=== PATIENT | female | born 1945 | race Caucasian/White ===

== ENCOUNTER 2017-12-13 17:29 | Emergency (ER) | payer MEDICARE, SELFPAY ==
[2017-12-13 17:30] VITALS: BP 117/83; PULSE 52; RESP 18; TEMP 36.4; O2SAT 94; BMI 34.7
--- NOTE | 2017-12-13 17:44 | RAD_ITS ---
STUDY: X-RAY - RIGHT WRIST REASON FOR EXAM: Female, 72 years old. Pain after fall. TECHNIQUE: 3 view(s) of the wrist were obtained. COMPARISON: None. FINDINGS: Normal visualized distal radius and ulna. Normal radiocarpal articulation. Normal distal radioulnar articulation. Normal carpal bones. Normal carpal articulations. Normal carpometacarpal articulation of the thumb. Normal second through fifth carpometacarpal articulations. Normal visualized metacarpal bones. The soft tissue structures are unremarkable. RAD/Wrist min 3 Views IMPRESSION: Normal x-ray examination of the wrist. Electronically Signed: Papo Hunter DO at 18:22 EST Tel [phone], Service support ,
--- NOTE | 2017-12-13 17:47 | ED.DCSUM_ITS ---
- ER Visit Summary Date of Service: 12/13/17 Chief Complaint: Mechanical fall History of Present Illness: The patient is a 72 F is otherwise healthy presents after mechanical fall. Patient was walking up to carpeted stairs. She states the toe of her left slipper got stuck and she fell forward. She landed catching herself with an outstretched right wrist. She turned her left ankle underneath her. She also hit her upper lip against the carpet. She did not lose consciousness. She denies headache, blurry vision, neck pain, or weakness. 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 Because of this, she presented to the emergency department. She takes no anticoagulants. Her last tetanus was 3 years ago. Physical Examination: Vital signs reviewed General: Well-nourished, well-developed Head: Normocephalic, superficial abrasion above left lip. No malocclusion. Midface stable. No hemotympanum or nasal septal hematoma. Eyes: Pupils equal and reactive, extraocular muscles intact Neck, supple, no lymphadenopathy Heart: Regular rate and rhythm Respiratory: No distress, clear bilaterally Abdomen: Soft, nontender, nondistended, no peritoneal signs Back: Nontender Extremities: Edema and swelling of right wrist. Some pain with motion. Normal pulses. Neurovascular intact. Superficial abrasion of left knee. Flexion extension preserved. Mild tenderness over left lateral malleolus. Skin: Normal color no rash Neuro: Alert and oriented, no focal or lateralizing deficits Test Results: [] Emergency Department Course and Treatment: The patient had a mechanical fall. She has a GCS of 15. She is on no anticoagulants. She has no significant head trauma. I do not feel head CT is necessary. I did obtain x-rays of her wrist and ankle. There is no evidence of acute fracture. The patient declined analgesics. She will be placed in a wrist splint for comfort. She is counseled on concerning symptoms and reasons to return. The patient will be discharged home. Treatment Plan: [] Disposition: Discharge Impression:. Right wrist sprain status post fall 2. Left ankle sprain This note was generated with [employer] dictation software. It may contain incorrect words, spelling, and punctuation that were not noted in review of the chart prior to signing ED Disposition - Plan for ED Patient: Disposition: Home or Assisted Living Chief Complaint: Fall Instructions: ED Sprain Wrist Referrals: Steffen Malloy Chi, MD [Primary Care Provider] -
--- NOTE | 2017-12-13 17:50 | RAD_ITS ---
STUDY: X-RAY - LEFT ANKLE REASON FOR EXAM: Female, 72 years old. Pain after fall. TECHNIQUE: 3 view(s) of the ankle. COMPARISON: None. FINDINGS: Normal visualized distal tibia and fibula. Normal medial and lateral malleoli. Normal tibiotalar articulation and ankle mortise. Normal visualized talus and calcaneus. The visualized subtalar, talonavicular, calcaneocuboid and tarsal articulations are normal. There is mild medial soft tissue swelling. RAD/Ankle min 3 Views IMPRESSION: Minimal soft tissue swelling without fracture or dislocation. Electronically Signed: Papo Hunter DO at 18:21 EST Tel [phone], Service support ,
[2017-12-13 18:42] VITALS: BP 120/80; PULSE 60; RESP 14; O2SAT 99
== END 2017-12-13 18:43 | disposition home or self-care (01) ==
LOC: ED 17:53
PROVIDERS: Emergency Provider Emergency Medicine; Family Provider Family Medicine Geriatric Medicine; PCP Family Medicine Geriatric Medicine
DX: S63.501A Unspecified sprain of right wrist, initial encounter (principal); S93.402A Sprain of unspecified ligament of left ankle, initial encounter; S00.81XA Abrasion of other part of head, initial encounter; S80.212A Abrasion, left knee, initial encounter; R40.2410 Glasgow coma scale score 13-15, unspecified time; W10.9XXA Fall (on) (from) unspecified stairs and steps, initial encounter; Y93.01 Activity, walking, marching and hiking; Y92.9 Unspecified place or not applicable
CPT/HCPCS: 73110; 73610; 99284

== ENCOUNTER → 2018-08-06 15:51 | Outpatient (CLI) | payer MEDICARE, SELFPAY ==
--- NOTE | 2018-08-06 15:55 | RAD_ITS ---
STUDY: X-RAY CHEST REASON FOR EXAM: Female, 73 years old. Chest cold x2 weeks TECHNIQUE: PA and lateral views of the chest. COMPARISON: Prior study of December 14, 2015 FINDINGS: The lungs are clear and expanded. There is no demonstrated pleural abnormality. There is mild cardiac enlargement. Normal mediastinum and rey. Normal visualized pulmonary arteries. There are calcified plaques of the thoracic aorta. There is demineralization of the osseous structures. Normal visualized ribs, clavicles, and shoulders. There is no demonstrated abnormality of the visualized soft tissue structures of the upper abdomen. RAD/Chest PA and Lateral IMPRESSION: Mild cardiomegaly. Calcified plaques of the thoracic aorta. Generalized osteopenia. No acute cardiopulmonary disease process is seen. Electronically Signed: Gorge Lane MD at 23:01 EDT , Service support ,
== END ==
PROVIDERS: Family Provider Family Medicine Geriatric Medicine; PCP Family Medicine Geriatric Medicine; Referring Provider Family Medicine Geriatric Medicine; Visit Provider Family Medicine Geriatric Medicine
DX: R68.83 Chills (without fever) (principal)
CPT/HCPCS: 71046; 87633

== ENCOUNTER → 2018-08-20 15:11 | Outpatient (CLI) | payer MEDICARE, SELFPAY ==
[2018-08-20 16:14] LABS: Absolute Lymphocyte Count 2.17 X10^3/ul (0.83-4.51); Absolute Neutrophil Count 9.3 X10^3/uL (2.0-7.7); Basophil# 0.04 X10^3/uL; Basophil% 0.3 % (0-1); Eosinophils% 0.8 % (0-5); Hematocrit 45.3 % (37-47); Hemoglobin 15.6 g/dl (12.0-15.0); Lymphocyte # 2.17 X10^3/ul (4.0); Lymphocyte % 17.4 % (19-41); Mean Corp Hgb Conc 34.4 g/gl (32-36); Mean Corpuscular Hgb 32.4 pg (27.0-32.0); Mean Corpuscular Volume 94.2 fL (81-99); Mean Platelet Vol. 11.1 fl (6.2-12.0); Monocyte# 0.88 X10^3/uL; Neutrophil # 9.25 X10^3/uL (2.7-7.7); Neutrophil % 74.1 % (47-70); Platelet Count 240 K/mm3 (150-450); RBC Distribution Width CV 15.4 % (11.6-14.6); RBC Distribution Width SD 52.2 fl (35.1-43.9); Red Blood Count 4.81 M/mm3 (4.2-5.4); White Blood Count 12.5 K/mm3 (4.4-11.0)
[2018-08-20 16:20] LABS: POSITIVE COUNT NO; POSITIVE DIFFERENTIAL NO; POSITIVE MORPHOLOGY NO
[2018-08-20 16:40] LABS: Vitamin D,25 Hydroxy 23.6 ng/mL (29.95-100.01)
[2018-08-20 16:57] LABS: ALB/GLOB Ratio 0.8 RATIO (0.9-2.4); AST(SGOT) 14 U/L (15-37); Alanine Aminotransfer ALT/SGPT 32 U/L (13-56); Albumin, Serum 3.3 g/dL (3.2-5.0); Alkaline Phosphatase 79 U/L (45-117); Anion Gap 8 (5-15); BUN 22 mg/dL (7-18); BUN/Creat Ratio 28.1 RATIO (10-20); Calcium,Total 9.5 mg/dL (8.5-10.1); Chloride 98 mmol/L (98-107); Cholesterol 201 mg/dL (200); Creatinine, Serum 0.78 mg/dL (0.55-1.02); EST Glomerular Filtration Rate 77 mL/min (>60); Est Glom Filt Rate - Afr Amer 93 mL/min (>60); Globulin 3.9 g/dL (2.2-4.2); Glucose 107 mg/dL (74-106); High Density Lipoprotein 57 mg/dL; Potassium 4.5 mmol/L (3.5-5.1); Protein, Total 7.2 g/dL (6.4-8.2); Sodium Level 138 mmol/L (136-145); Thyroid Stim Hormone (TSH) 1.89 uIU/mL (0.358-3.74); Triglycerides 92 mg/dL; Very Low Density Lipoprotein 18 mg/dL (5-40)
[2018-08-22 10:27] LABS: Hep C Antibodies <0.1 s/co ratio (0.0-0.9)
== END ==
PROVIDERS: Family Provider Family Medicine Geriatric Medicine; PCP Family Medicine Geriatric Medicine; Visit Provider Family Medicine Geriatric Medicine
DX: E55.9 Vitamin D deficiency, unspecified (principal); E78.49 Other hyperlipidemia; I10 Essential (primary) hypertension; Z13.89 Encounter for screening for other disorder
CPT/HCPCS: 80053; 80061; 82306; 84443; 85025; 86803

== ENCOUNTER 2018-11-11 21:43 | Inpatient (IN) | payer MEDICARE, SELFPAY ==
[2018-11-11 21:45] VITALS: BP 140/76; PULSE 83; RESP 13; TEMP 37.2; O2SAT 97; BMI 37.9
[2018-11-11 21:49] VITALS: BP 140/76; PULSE 96; RESP 15; O2SAT 95
--- NOTE | 2018-11-11 22:00 | EKG12_ITS ---
Test Reason : CP Blood Pressure : / mmHG Vent. Rate : 083 BPM Atrial Rate : 083 BPM P-R Int : 226 ms QRS Dur : 110 ms QT Int : 408 ms P-R-T Axes : 056 036 059 degrees QTc Int : 479 ms Sinus rhythm with marked sinus arrhythmia with 1st degree A-V block with Premature atrial complexes Incomplete right bundle branch block Cannot rule out Anterior infarct , age undetermined Abnormal ECG Confirmed by GERALD JESUS, SENAIT ([id number]), production editor LETTY RIOJAS ([id number]) on 11/14/2018 3:27:38 PM Referred By: No Mancini Confirmed By:SENAIT DUARTE MD
--- NOTE | 2018-11-11 22:08 | RAD_ITS ---
STUDY: X-RAY CHEST REASON FOR EXAM: Female, 73 years old. Chest pain. TECHNIQUE: Single frontal view of the chest. COMPARISON: August 06, 2018 FINDINGS: There is no new focal consolidation. There are stable prominent interstitial markings. There is stable mild cardiomegaly. Normal mediastinum and rey. Normal visualized pulmonary arteries. There is atherosclerotic calcification of the aortic arch. Normal visualized thoracic spine. Normal visualized ribs, clavicles, and shoulders. There is no demonstrated abnormality of the visualized soft tissue structures of the upper abdomen. RAD/Chest 1 View (Portable) IMPRESSION: Stable examination demonstrating mild cardiomegaly. Electronically Signed: Corie Huizar MD at 22:20 EST Tel , Service support ,
[2018-11-11 22:16] VITALS: O2SAT 93
[2018-11-11] MEDS: Aspirin 81 MG TAB.CHEW 324 MG PO (22:17)
[2018-11-11 22:41] LABS: Absolute Lymphocyte Count 1.41 X10^3/ul (0.83-4.51); Absolute Neutrophil Count 12.9 X10^3/uL (2.0-7.7); Basophil# 0.02 X10^3/uL; Basophil% 0.1 % (0-1); Eosinophil# 0.01 X10^3/uL; Eosinophils% 0.1 % (0-5); Hematocrit 44.9 % (37-47); Lymphocyte # 1.41 X10^3/ul (4.0); Lymphocyte % 9.3 % (19-41); Mean Corp Hgb Conc 33.4 g/gl (32-36); Mean Corpuscular Hgb 31.8 pg (27.0-32.0); Mean Corpuscular Volume 95.3 fL (81-99); Mean Platelet Vol. 11.6 fl (6.2-12.0); Monocyte% 4.6 % (0-10); Neutrophil % 85.5 % (47-70); Platelet Count 252 K/mm3 (150-450); RBC Distribution Width CV 15.1 % (11.6-14.6); RBC Distribution Width SD 52.9 fl (35.1-43.9); Red Blood Count 4.71 M/mm3 (4.2-5.4); White Blood Count 15.1 K/mm3 (4.4-11.0)
[2018-11-11 22:44] LABS: POSITIVE COUNT NO; POSITIVE DIFFERENTIAL NO; POSITIVE MORPHOLOGY NO
--- NOTE | 2018-11-11 22:54 | ED.DCSUM_ITS ---
- ER Visit Summary Date of Service: 11/11/18 Chief Complaint: Chest pain History of Present Illness: The patient is a 73 F presenting with chest pain. She states that this started earlier today. She complains of midsternal chest pain which radiates to her throat. It is worsened with exertion. Also comp lains of associated shortness of breath, nausea, diaphoresis. She states it is 5 out of 10. She denies PE/DVT risk factors. She has a history of GERD, hypertension, hypercholesterolemia. She is a smoker. Physical Examination: Vitals are stable. Patient is afebrile. Alert no acute distress. HEENT exam is unremarkable. Neck is supple. Lungs are clear and equal bilaterally. Heart is regular rate and rhythm. Abdomen is soft nontender nondistended. No guarding or rebound Extremities are unremarkable. Skin is warm and dry. No focal neurologic deficit. Remainder of exam is unremarkable. Emergency Department Course and Treatment: Patient was given aspirin on arrival. EKG is sinus rate of 83 with no acute ischemic changes. Chest x-ray shows mild cardiomegaly. CBC shows white count of 15.1. Chemistries show sodium 134, potassium 3.4, glucose 176, BUN 22. Troponin is 1.12. She is given morphine, Zofran. She is chest pain-free on reevaluation. Discussed with the hospitalist for admission. Discussed with Dr. Carlson. He recommends Brilinta, Lovenox, n.p.o. Disposition: Admission Impression: NSTEMI This note was generated with [employer] dictation software. It may contain incorrect words, spelling, and punctuation that were not noted in review of the chart prior to signing ED Disposition - Plan for ED Patient: Chief Complaint: Chest Pain
[2018-11-11 23:06] LABS: Anion Gap 10 (5-15); BUN 22 mg/dL (7-18); BUN/Creat Ratio 27.1 RATIO (10-20); Calcium,Total 9.8 mg/dL (8.5-10.1); Chloride 96 mmol/L (98-107); Creatinine, Serum 0.81 mg/dL (0.55-1.02); EST Glomerular Filtration Rate 74 mL/min (>60); Est Glom Filt Rate - Afr Amer 89 mL/min (>60); Estimated Creatinine Clearance 49.65 ml/min; Glucose 176 mg/dL (74-106); Potassium 3.4 mmol/L (3.5-5.1); Sodium Level 134 mmol/L (136-145)
--- NOTE | 2018-11-11 23:20 | ED.RN ---
dr winston notified of trop results
[2018-11-11] MEDS: Ondansetron 4 MG/2 ML Vial IV (23:23)
[2018-11-11] MEDS: Morphine 4 MG/ML Syringe IV (23:23)
--- NOTE | 2018-11-11 23:32 | PCM.HP.STD ---
Problem List (1) NSTEMI (non-ST elevated myocardial infarction) Status: Acute (2) Hypertension Status: Chronic Qualifiers: Hypertension type: essential hypertension Qualified Code(s): I10 - Essential (primary) hypertension (3) Hyperlipidemia Status: Acute Qualifiers: Hyperlipidemia type: unspecified Qualified Code(s): E78.5 - Hyperlipidemia, unspecified (4) Vitamin D deficiency Status: Chronic History of Present Illness Date of Admission: 11/11/18 Chief Complaint: Chest discomfort- 1 day The patient is a 73 year old F with past medical history of hypertension, hyperlipidemia, nicotine dependence, who comes in with 1 day history of chest discomfort. Patient woke up in the morning with what she describes as heartburns, that would not go away. She states she gets frequent heartburns, and typically did go away after couple of hours. This persisted throughout the whole day. Her son-in-law came to visit and insisted on she coming to the emergency department. She denied any dizziness or palpitations or shortness of breath or worsening leg swelling or PND or orthopnea. Vitals in the ED show temperature 98.9 F, heart rate 83, blood pressure 140/76, respiratory 13, SPO2 97% on room air. Admitting blood work showed RBC count of 15.1, hemoglobin 15.2, platelet count 252, sodium 134 potassium 3.4 chloride 96, bicarbonate 28, BUN 22, creatinine 0.81. Troponins were 1.120. EKG showed normal sinus rhythm, incomplete left bundle branch block, T wave inversion in V2 and V3. Admitting chest x-ray showed mild cardiomegaly. Past Medical History Past Medical History (Chronic Problems): Chronic Problems Hypertension (Chronic) Vitamin D deficiency (Chronic) Allergies No Known Allergies Allergy (Verified 11/11/18 21:49) Home Medications: Ambulatory Orders Medication Instructions Recorded Atenolol/Chlorthalidone 1 each PO DAILY 12/14/15 [Atenolol-Chlorthalidone 50-25] Budesonide/Formoterol 160/4.5 2 puff INHALATION QHS 12/14/15 [Symbicort 160/4.5 Mcg Inhaler (SP)] Ergocalciferol [Vitamin D] 50,000 unit PO QMONTH 12/14/15 Pravastatin [Pravachol] 40 mg PO QHS 12/14/15 Tiotropium [place] [Spiriva 18 MCG] 1 puff INHALATION DAILY 12/14/15 Losartan Potassium 100 mg PO DAILY 12/13/17 Surgical History: appendectomy, hysterectomy Psychiatric History: No pertinent psych hx NIGHT AUDITOR 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 Denies: Claudication, Light Headedness, Orthopnea, Palpitations, Paroxysmal Noc. Dyspnea Respiratory: Denies: Cough, Hemoptysis, Pleuritic Pain, Shortness of breath at rest, Shortness of breath upon exertion, Sputum production Gastrointestinal: Denies: Abdominal Pain, Nausea, Vomiting Genitourinary: Denies: Dysuria Musculoskeletal: Denies: Joint Pain, Joint Tenderness Skin: Denies: Rash, Wounds Neurological: Denies: Numbness, Tingling, Focal weakness Psychiatric: Denies: Anxiety, Depression, Homicidal Ideations, Suicidal Ideations Hematologic/ Lymphatic: Denies: Easy Bruising, Easy Bleeding VTE Information - Inpt Only VTE Present on Admission: No VTE Pharm Prophylaxis ordered?: Yes Patient Problems: Active and Suspected Problems NSTEMI (non-ST elevated myocardial infarction) (Acute) Hyperlipidemia (Acute) - Physical Exam General: Alert, Oriented x3, Cooperative, No apparent distress, - - on 2L oxygen, comfortable, able to complete sentences, obese HEENT: Atraumatic, PERRLA, EOMI, Normocephalic Oral: Moist Mucosa Neck: Supple, No JVD, Negative Carotid Bruits Lungs: Clear to auscultation, Normal air movement Cardiovascular: Regular rate, Regular Rhythm, Normal S1, Normal S2, No murmurs Abdomen: Bowel Sounds Present, Soft, Non Tender, Non-Distended, No Hepato-splenomegaly Extremities: Edema - Bipedal +2 Skin: No rashes, No breakdown Musculoskeletal: No Tenderness to Palpation of Joints or Extremities Lymphatic: No Cervical, Supraclavicular, or Inguinal Adenopathy Neurological: Cranial nerves II-XII grossly intact, Neuro grossly intact Psych/Mental Status: Normal Affect, Appropriate Vital Signs Temp Pulse Resp BP Pulse Ox 98.9 F 96 15 140/76 H 93 11/11/18 21:45 11/11/18 21:49 11/11/18 21:49 11/11/18 21:49 11/11/18 22:16 Oxygen Delivery Method Room Air Weight: 94 kg Body Mass Index (BMI) 37.9 Laboratory Tests Past 24 Hrs 11/11/18 11/11/18 21:50 21:50 WBC 15.1 H RBC 4.71 Hgb 15.0 Hct 44.9 MCV 95.3 MCH 31.8 MCHC 33.4 RDW 15.1 H RDW Differential 52.9 H Plt Count 252 MPV 11.6 Immature Gran % (Auto) 0.400 Neut % (Auto) 85.5 H Lymph % (Auto) 9.3 L [place] % (Auto) 4.6 Eos % (Auto) 0.1 Baso % (Auto) 0.1 Absolute Neuts (auto) 12.9 H Absolute Lymphs (auto) 1.41 Total Counted Not Reportable Sodium 134 L Potassium 3.4 L Chloride 96 L Carbon Dioxide 28.0 Anion Gap 10 BUN 22 H Creatinine 0.81 Estim Creat Clear Calc 49.65 Est GFR (MDRD) Af Amer 89 Est GFR (MDRD) Non-Af 74 BUN/Creatinine Ratio 27.1 H Glucose 176 H Calcium 9.8 Troponin I 1.120 H* Assessment/Plan All Active Problems NSTEMI (non-ST elevated myocardial infarction) (Acute) Hyperlipidemia (Acute) 73 year old F with past medical history of hypertension, hyperlipidemia, nicotine dependence, who comes in with 1 day history of chest discomfort. Patient woke up in the morning with what she describes as heartburns, that would not go away. 1. Acute NSTEMI, CAREN score 4, in a patient with multiple risk factors, admitting troponin was 1.120, EKG showed no acute ST-T changes Plan: Admit to PCU, monitor on telemetry, cardiology consult, given Lovenox x1, Brilinta 180 mg p.o. x1, in the ED, continue with Brilinta 80 mg p.o. twice daily, metoprolol 25 mg p.o. twice daily, keep n.p.o. for cardiac cath in a.m. per cardiology, 2D echo 2. Hypokalemia, secondary to chlorthalidone use, replaced, recheck in a.m. 3. Leukocytosis, likely reactive, no signs of infection, recheck in a.m. 4. Acute hypoxic respiratory failure, likely secondary to atelectasis, on 2 L oxygen, will check BNpep, encourage use of incentive spirometer, wean off oxygen 5. Hypertension, on atenolol/chlorthalidone, losartan, Will hold atenolol/chlorthalidone because she was started on metoprolol Continue to monitor vitals closely 6. Hyperlipidemia, on pravastatin 7. Nicotine dependence, will put on nicotine patch and gum 8. COPD, not on oxygen, on Advair, will put on prn breathing treatments 9. DVT PPx- Received Therapeutic Lovenox in ED Code Visit Inpatient E&M: 70011 Init Hosp L2
[2018-11-11 23:48] VITALS: BP 101/73; PULSE 76; RESP 17; O2SAT 96
[2018-11-11] MEDS: Enoxaparin 100 MG/ML Syringe 90 MG SC (23:50)
[2018-11-11] MEDS: TICAGRELOR 90 MG TABLET 180 MG PO (23:50)
[2018-11-12] VITALS (30 sets, daily range): BP systolic 96–159; BP diastolic 45–95; PULSE 53–83; RESP 16–27; TEMP 36.7–37; O2SAT 92–100; BMI 36.6; BMI 36.3
--- NOTE | 2018-11-12 00:28 | ECHOCS_ITS ---
Reason For Study: CP Procedure This was a 2D Doppler, Color Flow transthoracic echocardiogram. The study was technically difficult. Contrast injection was performed. Exam performed portable in ICU/CCU. Left Ventricle Normal LV size. Left ventricular systolic function is normal. The estimated ejection fraction is 65 %. No regional wall motion abnormalities noted. Right Ventricle Normal RV size. Normal systolic function. Atria Normal left atrium. Normal right atrium. No doppler evidence for ASD. Mitral Valve There is no mitral annular calcification. Normal mitral valve. Trivial mitral valve insufficiency. Tricuspid Valve Normal tricuspid valve. Trivial tricuspid valve insufficiency. Unable to estimate RV systolic pressure/pulmonary artery pressure due to technically difficult study. Aortic Valve The aortic valve is not well visualized. Trivial aortic valve insufficiency. Pulmonic Valve The pulmonic valve is not well visualized. 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 Pericardium/Pleural Small pericardial effusion. There are no echocardiographic indications of cardiac tamponade. Medication Diluted definity 5ml given slow IV push to enhance endocardial definition. MMode/2D Measurements & Calculations LVIDd: 4.9 cm IVSd: 1.4 cm Ao root diam: 3.8 cm LVIDs: 3.3 cm LVPWd: 1.2 cm ACS: 1.9 cm FS: 31.3 % Time Measurements MV dec time: 0.19 sec Doppler Measurements & Calculations MV E max cristiano: 99.9 cm/sec MV V2 max: 122.3 cm/sec MV P1/2t max cristiano: 121.3 cm/sec MV A max cristiano: 62.3 cm/sec MV max P.0 mmHg MV P1/2t: 110.7 msec MV E/A: 1.6 MV V2 mean: 51.5 cm/sec MV dec slope: 321.0 cm/sec2 MV mean P.4 mmHg MVA(P1/2t): 2.0 cm2 MV V2 VTI: 48.6 cm Ao V2 max: 145.0 cm/sec AI max cristiano: 370.1 cm/sec LV V1 max: 108.6 cm/sec Ao max P.5 mmHg AI max P.8 mmHg LV V1 max P.8 mmHg AI dec slope: 119.8 cm/sec2 AI P1/2t: 904.9 msec PA V2 max: 103.9 cm/sec Interpretation Summary The study was technically difficult. Contrast injection was performed. Left ventricular systolic function is normal. The estimated ejection fraction is 65 %. Trivial mitral valve insufficiency. Trivial tricuspid valve insufficiency. Trivial aortic valve insufficiency. 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 Small pericardial effusion. There are no echocardiographic indications of cardiac tamponade. Unable to estimate RV systolic pressure/pulmonary artery pressure due to technically difficult study. Transmitral diastolic flow velocities suggest diastolic dysfunction (pseudonormal pattern). Ordering Physician: No Mancini Referring Physician: No Mancini Performed By: Geovani Guaman RCS
--- NOTE | 2018-11-12 00:28 | EKG12_ITS ---
Test Reason : DOCTORS ORDER Blood Pressure : / mmHG Vent. Rate : 059 BPM Atrial Rate : 059 BPM P-R Int : 196 ms QRS Dur : 108 ms QT Int : 472 ms P-R-T Axes : 065 035 087 degrees QTc Int : 467 ms Sinus bradycardia with Premature atrial complexes with Aberrant conduction Nonspecific ST and T wave abnormality Abnormal ECG When compared with ECG of 12-NOV-2018 00:46, MANUAL COMPARISON REQUIRED, DATA IS UNCONFIRMED Confirmed by GERALD JESUS, SENAIT ([id number]), offline editor LETTY RIOJAS ([id number]) on 11/18/2018 9:05:20 AM Referred By: No Mancini Confirmed By:SENAIT DUARTE MD
--- NOTE | 2018-11-12 01:36 | NURSING ---
Pt unsure of when pneumonia vaccine was given. Guessed it was about 3 years ago.
[2018-11-12 04:14] LABS: Absolute Lymphocyte Count 1.96 X10^3/ul (0.83-4.51); Absolute Neutrophil Count 8.6 X10^3/uL (2.0-7.7); Basophil# 0.01 X10^3/uL; Basophil% 0.1 % (0-1); Eosinophil# 0.01 X10^3/uL; Eosinophils% 0.1 % (0-5); Hematocrit 41.9 % (37-47); Hemoglobin 14.2 g/dl (12.0-15.0); Lymphocyte # 1.96 X10^3/ul (4.0); Lymphocyte % 16.6 % (19-41); Mean Corp Hgb Conc 33.9 g/gl (32-36); Mean Corpuscular Hgb 32.3 pg (27.0-32.0); Mean Corpuscular Volume 95.2 fL (81-99); Mean Platelet Vol. 11.2 fl (6.2-12.0); Monocyte# 1.16 X10^3/uL; Monocyte% 9.8 % (0-10); Neutrophil # 8.64 X10^3/uL (2.7-7.7); Neutrophil % 73.1 % (47-70); Platelet Count 243 K/mm3 (150-450); RBC Distribution Width CV 15.4 % (11.6-14.6); RBC Distribution Width SD 52.6 fl (35.1-43.9); White Blood Count 11.8 K/mm3 (4.4-11.0)
[2018-11-12 04:15] LABS: International Normalized Ratio 1.1; Prothrombin Time (Protime)PT. 13.9 SECONDS (11.7-14.9)
[2018-11-12 04:16] LABS: Partial Thromboplast Time 36.5 Seconds (24.1-36.2)
[2018-11-12 04:19] LABS: POSITIVE COUNT NO; POSITIVE DIFFERENTIAL NO; POSITIVE MORPHOLOGY NO
[2018-11-12 04:48] LABS: Anion Gap 12 (5-15); BUN 24 mg/dL (7-18); BUN/Creat Ratio 29.1 RATIO (10-20); Calcium,Total 9.4 mg/dL (8.5-10.1); Chloride 95 mmol/L (98-107); Cholesterol 114 mg/dL (200); Creatinine, Serum 0.82 mg/dL (0.55-1.02); EST Glomerular Filtration Rate 72 mL/min (>60); Est Glom Filt Rate - Afr Amer 88 mL/min (>60); Estimated Creatinine Clearance 49.05 ml/min; Glucose 132 mg/dL (74-106); High Density Lipoprotein 44 mg/dL; Potassium 3.6 mmol/L (3.5-5.1); Sodium Level 137 mmol/L (136-145); Triglycerides 119 mg/dL; Very Low Density Lipoprotein 24 mg/dL (5-40)
[2018-11-12 05:10] LABS: BNP,B-Type NATRIURETIC PEPTIDE 406.8 pg/mL (0-100)
[2018-11-12] MEDS: 0.9% NaCl Peripheral Flush Adult/Peds IV ×3 (06:07→06:14)
[2018-11-12] MEDS: Furosemide 20 MG/2 ML VIAL IV (06:22)
--- NOTE | 2018-11-12 07:07 | EKG12_ITS ---
Test Reason : POST PCI Blood Pressure : / mmHG Vent. Rate : 073 BPM Atrial Rate : 073 BPM P-R Int : 242 ms QRS Dur : 110 ms QT Int : 458 ms P-R-T Axes : 060 024 072 degrees QTc Int : 504 ms Sinus rhythm with 1st degree A-V block Prolonged QT Abnormal ECG When compared with ECG of 12-NOV-2018 00:46, MANUAL COMPARISON REQUIRED, DATA IS UNCONFIRMED Confirmed by GERALD JESUS, SENAIT ([id number]), general expeditor LETTY RIOJAS ([id number]) on 11/14/2018 3:48:31 PM Referred By: No Mancini Confirmed By:SENAIT DUARTE MD
[2018-11-12] MEDS: Metoprolol Tartrate 25 MG Tablet PO (08:01)
[2018-11-12] MEDS: TICAGRELOR 90 MG TABLET PO ×2 (08:01→21:53)
[2018-11-12] MEDS: Aspirin E.C. 81 MG Tablet PO (08:01)
[2018-11-12] MEDS: Losartan Potassium 100 MG Tablet PO (08:01)
[2018-11-12] MEDS: Budesonide Respules 0.5 MG/2 ML AMPUL.NEB. INHALATION ×2 (08:06→18:42)
[2018-11-12] MEDS: Ipratropium/Albuterol Sulfate 3 ML AMPUL.NEB INHALATION ×3 (08:06→18:42)
--- NOTE | 2018-11-12 08:09 | PCM.CONS.C ---
Problem List (1) NSTEMI (non-ST elevated myocardial infarction) Status: Acute (2) Conduction disorder of the heart Status: Acute (3) Hyperlipidemia Status: Acute Qualifiers: Hyperlipidemia type: unspecified Qualified Code(s): E78.5 - Hyperlipidemia, unspecified (4) Hypertension Status: Chronic Qualifiers: Hypertension type: essential hypertension Qualified Code(s): I10 - Essential (primary) hypertension (5) COPD (chronic obstructive pulmonary disease) Status: Chronic Reason for Consult Date of Consultation: 11/12/18 History of Present Illness: The patient is a 73 year old white female with a past medical history of hyperlipidemia, hypertension, COPD, who presents for evaluation of symptoms and objective findings compatible with an acute non-ST segment elevation [place] as well as subsequent cardiac dysrhythmia findings compatible with underlying conduction system abnormality. The patient states that she has off and on heartburn . She states this radiates from her epigastric area up to her neck. It does not usually involve her jaw or upper extremities. She does feel chronically short of breath and dyspneic which she attributes to her COPD. She denies any associated nausea, emesis, or diaphoresis. She has had not had orthopnea or PND. She states she has waxing and waning lower extremity peripheral pitting edema. She has felt dizzy and lightheaded but there is been no near syncope or syncope. She had recurrent symptoms yesterday. She states they persisted all day. She subsequent he presented to the [facility] emergency department for further evaluation. They are on cardiac enzyme profile she was found to have an abnormally elevated troponin I level. Her ECG demonstrated sinus rhythm with what was reported as an incomplete right bundle branch block pattern. She was subsequently treated with a combination of aspirin and antiplatelet therapy as well as nitrates and beta-blockers. She was given a one-time dose of subcutaneous Lovenox. She was placed in the PCU for further evaluation and care. Since that time she has been resting comfortably. Her cardiac enzymes have been followed and her troponin I levels have decreased. Her ECG continues to demonstrate an underlying sinus rhythm with her incomplete right bundle branch block pattern. However on cardiac rhythm monitoring she has been shown to have evidence of what appears to be second-degree AV block Mobitz 1 as well as episodes of 2-1 AV block/high-grade AV block. [] Past Medical History Allergies/Adverse Reactions: Allergies No Known Allergies Allergy (Verified 11/11/18 21:49) Home Medications: Ambulatory Orders Medication Instructions Recorded Atenolol/Chlorthalidone 1 each PO DAILY 12/14/15 [Atenolol-Chlorthalidone 50-25] Budesonide/Formoterol 160/4.5 2 puff INHALATION QHS 12/14/15 [Symbicort 160/4.5 Mcg Inhaler (SP)] Ergocalciferol [Vitamin D] 50,000 unit PO QMONTH 12/14/15 Pravastatin [Pravachol] 40 mg PO QHS 12/14/15 Tiotropium [place] [Spiriva 18 MCG] 1 puff INHALATION DAILY 12/14/15 RX: Losartan Potassium 100 mg PO DAILY 12/13/17 Past Medical History (Chronic Problems): Chronic Problems Hypertension (Chronic) Vitamin D deficiency (Chronic) COPD (chronic obstructive pulmonary disease) (Chronic) Surgical History: appendectomy, hysterectomy Psychiatric History: No pertinent psych hx 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 Denies: Orthopnea, PND, Peripheral Edema, Palpitations, Lightheadedness, Near Syncope, Syncope Respiratory: Reports: Shortness of Breath. Denies: Cough, Sputum Production, Hemoptysis Gastrointestinal: Denies: Hematemesis, Hematochezia, Melena Genitourinary: Denies: Dysuria, Hematuria Skin: Denies: Rash Objective: Vital Signs Temp Pulse Resp BP Pulse Ox 98.5 F 82 16 114/60 92 11/12/18 08:00 11/12/18 08:01 11/12/18 08:00 11/12/18 08:00 11/12/18 08:00 Oxygen Flow Rate (L/min) 2 Oxygen Delivery Method Room Air Weight: 199 lb 15.348 oz Body Mass Index (BMI) 36.6 Intake and Output for Last 24 Hours 11/10/18 11/11/18 11/12/18 23:59 23:59 23:59 Intake Total 240 / 240 Balance 240 / 240 General: Awake, Alert, Oriented x 3, Cooperative, No Acute Distress, Obese HEENT: Atraumatic, Normocephalic, PERRL, EOMI, Sclera Non Icteric Oral: Moist Mucosa Neck: Supple, Good ROM, No JVD Lungs: Clear to auscultation Cardiovascular: Regular Rhythm, Normal S1, Normal S2 Vascular: No Carotid Bruits Abdomen: Bowel Sounds Present, Soft, Non Tender Extremities: Trace RLE Edema, Trace LLE Edema Neurological: No Focal Motor or Sensory Deficit Psych/Mental Status: Appropriate 11/11/18 21:50: WBC 15.1 H, RBC 4.71, Hgb 15.0, Hct 44.9, MCV 95.3, MCH 31.8, MCHC 33.4, RDW 15.1 H, RDW Differential 52.9 H, Plt Count 252, MPV 11.6, Immature Gran % (Auto) 0.400, Neut % (Auto) 85.5 H, Lymph % (Auto) 9.3 L, [place] % (Auto) 4.6, Eos % (Auto) 0.1, Baso % (Auto) 0.1, Absolute Neuts (auto) 12.9 H, Total Counted Not Reportable 11/11/18 21:50: Sodium 134 L, Potassium 3.4 L, Chloride 96 L, Carbon Dioxide 28.0, Anion Gap 10, BUN 22 H, Creatinine 0.81, Est GFR (MDRD) Af Amer 89, Est GFR (MDRD) Non-Af 74, BUN/Creatinine Ratio 27.1 H, Glucose 176 H, Calcium 9.8, Troponin I 1.120 H* 11/12/18 00:58: Troponin I 1.000 H* 11/12/18 03:40: Sodium 137, Potassium 3.6, Chloride 95 L, Carbon Dioxide 30.0, Anion Gap 12, BUN 24 H, Creatinine 0.82, Est GFR (MDRD) Af Amer 88, Est GFR (MDRD) Non-Af 72, BUN/Creatinine Ratio 29.1 H, Glucose 132 H, Calcium 9.4, Troponin I 0.777 H*, Triglycerides 119, Cholesterol 114, LDL Cholesterol 46, VLDL Cholesterol 24, HDL Cholesterol 44 11/12/18 03:40: WBC 11.8 H, RBC 4.40, Hgb 14.2, Hct 41.9, MCV 95.2, MCH 32.3 H, MCHC 33.9, RDW 15.4 H, RDW Differential 52.6 H, Plt Count 243, MPV 11.2, Immature Gran % (Auto) 0.300, Neut % (Auto) 73.1 H, Lymph % (Auto) 16.6 L, Cat[place] % (Auto) 9.8, Eos % (Auto) 0.1, Baso % (Auto) 0.1, Absolute Neuts (auto) 8.6 H, Total Counted Not Reportable 11/12/18 03:40: PT 13.9, INR 1.1, APTT 36.5 H 11/12/18 03:40: Sodium Cancelled, Potassium Cancelled, Chloride Cancelled, Carbon Dioxide Cancelled, Anion Gap Cancelled, BUN Cancelled, Creatinine Cancelled, Est GFR (MDRD) Af Amer Cancelled, Est GFR (MDRD) Non-Af Cancelled, BUN/Creatinine Ratio Cancelled, Glucose Cancelled, Calcium Cancelled 11/12/18 03:40: B-Natriuretic Peptide 406.8 H Rhythm: sinus rhythm EKG: as noted above CXR: preliminary evaluation: no acute cardiopulmonary disease appreciated; please see official report Assessment/Plan 1. NSTEMI The patient presents with signs and symptoms and objective findings compatible with a non-ST segment elevation IN. She is going to continue to be monitored. She will continue medical therapy. She will proceed with further evaluation with diagnostic cardiac catheterization. The cardiac catheterization procedure and risks were discussed with her. She was agreeable to this approach. 2. Conduction disorder He has been found to have an underlying conduction system disorder with evidence of a second-degree AV block Mobitz 1 and evidence of a 2-1 high-grade AV block. This may be secondary to underlying CAD. At the present time she appears to be symptomatically and hemodynamically stable. She will continue medical management with adjustment as needed. She will proceed with further evaluation with diagnostic cardiac catheterization. 3. Hyperlipidemia The will need to continue risk factor evaluation and care. 4. HTN Her blood pressure will need to be followed. Her medications will need to be adjusted deemed appropriate. 5. COPD The does have a history of underlying COPD. This may be can contributing to her chronic shortness of breath and dyspnea. She will need to continue evaluation care per internal medicine. This note was generated using a voice recognition system and there may be incorrect words, spelling or punctuation that were not noted when reviewing the office note prior to saving.
--- NOTE | 2018-11-12 08:14 | CON.PCM_ITS ---
Problem List (1) NSTEMI (non-ST elevated myocardial infarction) Status: Acute (2) Conduction disorder of the heart Status: Acute (3) Hyperlipidemia Status: Acute Qualifiers: Hyperlipidemia type: unspecified Qualified Code(s): E78.5 - Hyperlipidemia, unspecified (4) Hypertension Status: Chronic Qualifiers: Hypertension type: essential hypertension Qualified Code(s): I10 - Essential (primary) hypertension (5) COPD (chronic obstructive pulmonary disease) Status: Chronic Reason for Consult Date of Consultation: 11/12/18 History of Present Illness: The patient is a 73 year old white female with a past medical history of hyperlipidemia, hypertension, COPD, who presents for evaluation of symptoms and objective findings compatible with an acute non-ST segment elevation [place] as well as subsequent cardiac dysrhythmia findings compatible with underlying conduction system abnormality. The patient states that she has off and on heartburn . She states this radiates from her epigastric area up to her neck. It does not usually involve her jaw or upper extremities. She does feel chronically short of breath and dyspneic which she attributes to her COPD. She denies any associated nausea, emesis, or diaphoresis. She has had not had orthopnea or PND. She states she has waxing and waning lower extremity peripheral pitting edema. She has felt dizzy and lightheaded but there is been no near syncope or syncope. She had recurrent symptoms yesterday. She states they persisted all day. She subsequent he presented to the [facility] emergency department for further evaluation. They are on cardiac enzyme profile she was found to have an abnormally elevated troponin I level. Her ECG demonstrated sinus rhythm with what was reported as an incomplete right bundle branch block pattern. She was subsequently treated with a combination of aspirin and antiplatelet therapy as well as nitrates and beta-blockers. She was given a one-time dose of subcutaneous Lovenox. She was placed in the PCU for further evaluation and care. Since that time she has been resting comfortably. Her cardiac enzymes have been followed and her troponin I levels have decreased. Her ECG continues to demonstrate an underlying sinus rhythm with her incomplete right bundle branch block pattern. However on cardiac rhythm monitoring she has been shown to have evidence of what appears to be second-degree AV block Mobitz 1 as well as episodes of 2-1 AV block/high-grade AV block. [] Past Medical History Allergies/Adverse Reactions: Allergies No Known Allergies Allergy (Verified 11/11/18 21:49) Home Medications: Ambulatory Orders Medication Instructions Recorded Atenolol/Chlorthalidone 1 each PO DAILY 12/14/15 [Atenolol-Chlorthalidone 50-25] Budesonide/Formoterol 160/4.5 2 puff INHALATION QHS 12/14/15 [Symbicort 160/4.5 Mcg Inhaler (SP)] Ergocalciferol [Vitamin D] 50,000 unit PO QMONTH 12/14/15 Pravastatin [Pravachol] 40 mg PO QHS 12/14/15 Tiotropium [place] [Spiriva 18 MCG] 1 puff INHALATION DAILY 12/14/15 RX: Losartan Potassium 100 mg PO DAILY 12/13/17 Past Medical History (Chronic Problems): Chronic Problems Hypertension (Chronic) Vitamin D deficiency (Chronic) COPD (chronic obstructive pulmonary disease) (Chronic) Surgical History: appendectomy, hysterectomy Psychiatric History: No pertinent psych hx 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 Denies: Orthopnea, PND, Peripheral Edema, Palpitations, Lightheadedness, Near Syncope, Syncope Respiratory: Reports: Shortness of Breath. Denies: Cough, Sputum Production, Hemoptysis Gastrointestinal: Denies: Hematemesis, Hematochezia, Melena Genitourinary: Denies: Dysuria, Hematuria Skin: Denies: Rash Objective: Vital Signs Temp Pulse Resp BP Pulse Ox 98.5 F 82 16 114/60 92 11/12/18 08:00 11/12/18 08:01 11/12/18 08:00 11/12/18 08:00 11/12/18 08:00 Oxygen Flow Rate (L/min) 2 Oxygen Delivery Method Room Air Weight: 199 lb 15.348 oz Body Mass Index (BMI) 36.6 Intake and Output for Last 24 Hours 11/10/18 11/11/18 11/12/18 23:59 23:59 23:59 Intake Total 240 / 240 Balance 240 / 240 General: Awake, Alert, Oriented x 3, Cooperative, No Acute Distress, Obese HEENT: Atraumatic, Normocephalic, PERRL, EOMI, Sclera Non Icteric Oral: Moist Mucosa Neck: Supple, Good ROM, No JVD Lungs: Clear to auscultation Cardiovascular: Regular Rhythm, Normal S1, Normal S2 Vascular: No Carotid Bruits Abdomen: Bowel Sounds Present, Soft, Non Tender Extremities: Trace RLE Edema, Trace LLE Edema Neurological: No Focal Motor or Sensory Deficit Psych/Mental Status: Appropriate 11/11/18 21:50: WBC 15.1 H, RBC 4.71, Hgb 15.0, Hct 44.9, MCV 95.3, MCH 31.8, MCHC 33.4, RDW 15.1 H, RDW Differential 52.9 H, Plt Count 252, MPV 11.6, Immature Gran % (Auto) 0.400, Neut % (Auto) 85.5 H, Lymph % (Auto) 9.3 L, [place] % (Auto) 4.6, Eos % (Auto) 0.1, Baso % (Auto) 0.1, Absolute Neuts (auto) 12.9 H, Total Counted Not Reportable 11/11/18 21:50: Sodium 134 L, Potassium 3.4 L, Chloride 96 L, Carbon Dioxide 28.0, Anion Gap 10, BUN 22 H, Creatinine 0.81, Est GFR (MDRD) Af Amer 89, Est GFR (MDRD) Non-Af 74, BUN/Creatinine Ratio 27.1 H, Glucose 176 H, Calcium 9.8, Troponin I 1.120 H* 11/12/18 00:58: Troponin I 1.000 H* 11/12/18 03:40: Sodium 137, Potassium 3.6, Chloride 95 L, Carbon Dioxide 30.0, Anion Gap 12, BUN 24 H, Creatinine 0.82, Est GFR (MDRD) Af Amer 88, Est GFR (MDRD) Non-Af 72, BUN/Creatinine Ratio 29.1 H, Glucose 132 H, Calcium 9.4, Troponin I 0.777 H*, Triglycerides 119, Cholesterol 114, LDL Cholesterol 46, VLDL Cholesterol 24, HDL Cholesterol 44 11/12/18 03:40: WBC 11.8 H, RBC 4.40, Hgb 14.2, Hct 41.9, MCV 95.2, MCH 32.3 H, MCHC 33.9, RDW 15.4 H, RDW Differential 52.6 H, Plt Count 243, MPV 11.2, Immature Gran % (Auto) 0.300, Neut % (Auto) 73.1 H, Lymph % (Auto) 16.6 L, [place] % (Auto) 9.8, Eos % (Auto) 0.1, Baso % (Auto) 0.1, Absolute Neuts (auto) 8.6 H, Total Counted Not Reportable 11/12/18 03:40: PT 13.9, INR 1.1, APTT 36.5 H 11/12/18 03:40: Sodium Cancelled, Potassium Cancelled, Chloride Cancelled, Carbon Dioxide Cancelled, Anion Gap Cancelled, BUN Cancelled, Creatinine Cancelled, Est GFR (MDRD) Af Amer Cancelled, Est GFR (MDRD) Non-Af Cancelled, BUN/Creatinine Ratio Cancelled, Glucose Cancelled, Calcium Cancelled 11/12/18 03:40: B-Natriuretic Peptide 406.8 H Rhythm: sinus rhythm EKG: as noted above CXR: preliminary evaluation: no acute cardiopulmonary disease appreciated; please see official report Assessment/Plan 1. NSTEMI The patient presents with signs and symptoms and objective findings compatible with a non-ST segment elevation [place]. She is going to continue to be monitored. She will continue medical therapy. She will proceed with further evaluation with diagnostic cardiac cat heterization. The cardiac catheterization procedure and risks were discussed with her. She was agreeable to this approach. 2. Conduction disorder He has been found to have an underlying conduction system disorder with evidence of a second-degree AV block Mobitz 1 and evidence of a 2-1 high-grade AV block. This may be secondary to underlying CAD. At the present time she appears to be symptomatically and hemodynamically stable. She will continue medical management with adjustment as needed. She will proceed with further evaluation with diagnostic cardiac catheterization. 3. Hyperlipidemia The will need to continue risk factor evaluation and care. 4. HTN Her blood pressure will need to be followed. Her medications will need to be adjusted deemed appropriate. 5. COPD The does have a history of underlying COPD. This may be can contributing to her chronic shortness of breath and dyspnea. She will need to continue evaluation care per internal medicine. This note was generated using a voice recognition system and there may be incorrect words, spelling or punctuation that were not noted when reviewing the office note prior to saving.
[2018-11-12 11:35] LABS: ACT Activated Clotting Time 175 sec (74-137)
[2018-11-12] MEDS: 0.9% Normal Saline 1,000 ML 150 ML IV (11:45)
--- NOTE | 2018-11-12 11:47 | EKG12_ITS ---
Test Reason : SA Blood Pressure : / mmHG Vent. Rate : 061 BPM Atrial Rate : 083 BPM P-R Int : 000 ms QRS Dur : 110 ms QT Int : 466 ms P-R-T Axes : 080 030 086 degrees QTc Int : 469 ms Sinus rhythm with 2nd degree A-V block (Mobitz I) with Fusion complexes Nonspecific ST and T wave abnormality Abnormal ECG When compared with ECG of 12-NOV-2018 11:45, MANUAL COMPARISON REQUIRED, DATA IS UNCONFIRMED Confirmed by GERALD JESUS, SENAIT ([id number]), editor & co founder LETTY RIOJAS ([id number]) on 11/14/2018 3:48:19 PM Referred By: No Mancini Confirmed By:SENAIT DUARTE MD
[2018-11-12] MEDS: oxyCODONE 5 MG Tablet PO ×2 (13:00→17:17)
--- NOTE | 2018-11-12 13:12 | CRPHASE1 ---
Patient Data/Charges Refer Phase II:: Yes Phase II Referral:: [facility] Risk Factors/Lifestyle Smoking Status: Current every day smoker Hx Dyslipidemia: Yes Hx Obesity: Yes Height: 1.57 m Weight:: 90.265 kg BMI: 36.3 Laboratory Values: Cardiac Rehab Phase I Labs Triglycerides 119 mg/dL (-199) 11/12/18 03:40 Cholesterol 114 mg/dL (200) 11/12/18 03:40 LDL Cholesterol 46 mg/dL (0-130) 11/12/18 03:40 HDL Cholesterol 44 mg/dL (40-) 11/12/18 03:40 Phase I Education Given On:: [place], Nutrition, Antiplatelet medication, CHF, Smoking cessation, Diabetes - Type I, Diabetes - Type II Hospital Course Cardiac Cath Date:: 11/12/18 Medical/Surgical History Hypertension:: Yes Dyslipidemia:: Yes PTCA:: Yes
--- NOTE | 2018-11-12 13:14 | CRPH1.INSTRU ---
General Education CAD and cardiac anatomy and function:: Needs reinforcement Explanation of diagnoses and procedures:: Needs reinforcement Sign/Symptoms of VT:: Needs reinforcement Antiplatelet therapy: Needs reinforcement Proper use of NTG-SL: Not instructed Emergency procedures and activation of EMS: Needs reinforcement Compliance of all prescribed medications: Needs reinforcement Smoking Patient Nicotine/Smoking Risk Factors Are:: Cigarettes Nicotine/Smoking Response Code:: Needs reinforcement Dyslipidemia Dyslipidemia Response Code:: Needs reinforcement Overweight/Obesity Patient Overweight/Obesity Risk Factors Are:: Obesity - > or = 30 Recommendations Include:: Weight loss of 5-10%, Reduced calorie diet, Exercise 5-7 times/week Overweight/Obesity:: Needs reinforcement Hypertension Recommendations Include:: Maintain BP <130/85, BP <130/80 if diabetic, DASH dietary guidelines, Decrease/maintain normal body weight, Moderation of ETOH Hypertension:: Needs reinforcement Heart Disease Heart Disease Response Code:: Needs reinforcement Diabetes Diabetes:: Needs reinforcement Metabolic Syndrome Metabolic Syndrome Response Code:: Needs reinforcement Sedentary Sedentary Response Code:: Needs reinforcement Stress Stress Response Code:: Needs reinforcement
[2018-11-12] MEDS: Morphine 2 MG/ML Syringe IV ×2 (14:06→18:16)
--- NOTE | 2018-11-12 15:32 | NURSING ---
Pt in SR w/ on admit to ICU. Increased Sinus arrhythmia. Sustained SR w/ type I AV block. VSS. EKG obtained. Notified Dr. Carlson. No orders received concerning this issue. Will continue to monitor
--- NOTE | 2018-11-12 15:45 | CASEMGMT ---
TEREZA MA DYER AND WASHER CM to room to meet with patient for initial transition planning/care coordination assessment. TEREZA MA introduced self and role at [facility]. Pt voices understanding and consents to assessment at this time. Pt resting in bed in no distress at this time. Pt is A/O at this time and answers all questions appropriately. Care providers, pharmacy, and demographics verified at this time. PCP: [facility] Specialists: Denmilvia Preferred Pharmacy: [facility] Insurance: [employer] [facility] Prescription Benefit: Yes Living Will/HPOA: does not have LW or HCPOA . Interested in more information but does not want to talk with SW at this time to complete paperwork. Provided information on advanced directives and given Social Service rac card with number to call if chooses in the future to utilize [facility] social work for advanced directive completion. Educated patient that, if patient so chooses, can come back to [facility] and meet with a SW as an outpatient to complete health care advanced directives. Patient expresses understanding. Living Arrangements: Lives with Dtr and Son-in-law. States they assist her buying groceries. She states she is independent with personal ADL's. States they have a cleaning lady. Transportation: Pt states drives self and states no transportation concerns at this time. DME: has the following DME: Rails/grab bars, Medical Alert States would like a shower chair. She was informed that her insurance will not cover for shower chair but that this could be purchased @ a local [facility] or [employer] store. HHC/SNF: Has never used HHC or been to a SNF. Pt wishes to return home and states has no concerns with going home at time of discharge. Pt states she smokes 1 PPD and declines wanting smoking cessation information. States does not drink. CM to follow for home oxygen needs and any further discharge planning/needs. Pt voices no further concerns/needs at this time. Advised pt to ask for CM if any further questions/concerns/needs arise. Voices understanding. PLAN: Home. Pepito AMADOR RN, CM
[2018-11-12 15:48] LABS: Hematocrit 37.9 % (37-47); Hemoglobin 12.5 g/dl (12.0-15.0)
--- NOTE | 2018-11-12 17:55 | ADUL_ITS ---
Reason For Study: RT groin pain/ecchymosis s/p heart cath Right Velocities Left Velocities VENEER JOINER - .81 x .89 cm with a velocity of 110.0 cm/s LT VENEER JOINER - .70 x .69 cm with a velocity of 88.0 cm/s CFV demonstrates normal phasic flow signal LT CFV demonstrates normal phasic flow signal. No evidence of AV fistula or pseudoaneurysm. Procedure Exam performed portable in ICU/CCU. Interpretation Summary Right common femoral artery 0.8 x 0.9cm, normal flow in the artery and vein. Left common femoral artery 0.7 x 0.7cm, normal flow in the artery and vein. No evidence for fistula or pseudoaneurysm Ordering Physician: João Carlson Referring Physician: Steffen Malloy Chi Performed By: Carina Brock RVT
--- NOTE | 2018-11-12 18:00 | PCM.PN.CARD ---
Subjectve: The patient is s/p diagnostic cardiac cath. She denies ongoing chest pain. Her main concern is her chronic low back pain that she experiences when she cannot be up and moving. Objective: Vital Signs Temp Pulse Resp BP Pulse Ox 98.2 F 59 L 24 H 138/45 H 96 11/12/18 12:19 11/12/18 17:00 11/12/18 17:00 11/12/18 17:00 11/12/18 17:00 Oxygen Flow Rate (L/min) 3 Oxygen Delivery Method Nasal Cannula Weight: 199 lb Body Mass Index (BMI) 36.6 Intake and Output for Last 24 Hours 11/10/18 11/11/18 11/12/18 23:59 23:59 23:59 Intake Total 240 / 240 Output Total 850 / 850 Balance -610 / -610 General: Awake, Alert, Oriented x 3, Cooperative, No Acute Distress, Obese HEENT: Atraumatic, Normocephalic, PERRL, EOMI Oral: Moist Mucosa Neck: Supple, Good ROM, No JVD Lungs: Clear to auscultation Cardiovascular: Irregular Rhythm, Normal S1, Normal S2 Abdomen: Bowel Sounds Present, Soft, Non Tender Extremities: - - RLE: inguinal area: ecchymoses; no obvious mass appreciated Musculoskeletal: - Neurological: No Focal Motor or Sensory Deficit Psych/Mental Status: Appropriate 11/11/18 21:50: WBC 15.1 H, RBC 4.71, Hgb 15.0, Hct 44.9, MCV 95.3, MCH 31.8, MCHC 33.4, RDW 15.1 H, RDW Differential 52.9 H, Plt Count 252, MPV 11.6, Immature Gran % (Auto) 0.400, Neut % (Auto) 85.5 H, Lymph % (Auto) 9.3 L, [place] % (Auto) 4.6, Eos % (Auto) 0.1, Baso % (Auto) 0.1, Absolute Neuts (auto) 12.9 H, Total Counted Not Reportable 11/11/18 21:50: Sodium 134 L, Potassium 3.4 L, Chloride 96 L, Carbon Dioxide 28.0, Anion Gap 10, BUN 22 H, Creatinine 0.81, Est GFR (MDRD) Af Amer 89, Est GFR (MDRD) Non-Af 74, BUN/Creatinine Ratio 27.1 H, Glucose 176 H, Calcium 9.8, Troponin I 1.120 H* 11/12/18 00:58: Troponin I 1.000 H* 11/12/18 03:40: Sodium 137, Potassium 3.6, Chloride 95 L, Carbon Dioxide 30.0, Anion Gap 12, BUN 24 H, Creatinine 0.82, Est GFR (MDRD) Af Amer 88, Est GFR (MDRD) Non-Af 72, BUN/Creatinine Ratio 29.1 H, Glucose 132 H, Calcium 9.4, Troponin I 0.777 H*, Triglycerides 119, Cholesterol 114, LDL Cholesterol 46, VLDL Cholesterol 24, HDL Cholesterol 44 11/12/18 03:40: WBC 11.8 H, RBC 4.40, Hgb 14.2, Hct 41.9, MCV 95.2, MCH 32.3 H, MCHC 33.9, RDW 15.4 H, RDW Differential 52.6 H, Plt Count 243, MPV 11.2, Immature Gran % (Auto) 0.300, Neut % (Auto) 73.1 H, Lymph % (Auto) 16.6 L, [place] % (Auto) 9.8, Eos % (Auto) 0.1, Baso % (Auto) 0.1, Absolute Neuts (auto) 8.6 H, Total Counted Not Reportable 11/12/18 03:40: PT 13.9, INR 1.1, APTT 36.5 H 11/12/18 03:40: Sodium Cancelled, Potassium Cancelled, Chloride Cancelled, Carbon Dioxide Cancelled, Anion Gap Cancelled, BUN Cancelled, Creatinine Cancelled, Est GFR (MDRD) Af Amer Cancelled, Est GFR (MDRD) Non-Af Cancelled, BUN/Creatinine Ratio Cancelled, Glucose Cancelled, Calcium Cancelled 11/12/18 03:40: B-Natriuretic Peptide 406.8 H 11/12/18 15:15: Hgb 12.5, Hct 37.9 Rhythm: EKG: ECHO: Stress Test: Cardiac Cath: PCI: CT Surgery: Holter monitor: EPS: PPM: CXR: Chest CT Scan: Medical Necessity - Tobacco Use Smoking Status: Current every day smoker Tobacco Use: Cigarettes Assessment/Plan 1. NSTEMI The patient presents with signs and symptoms and objective findings compatible with a non-ST segment elevation MN. She is going to continue to be monitored. She will continue medical therapy. She has been evaluated with a diagnostic cardiac cath. She was found to have angiographically significant CAD of the RCA. She underwent RCA PCI. 2. Conduction disorder He has been found to have an underlying conduction system disorder with evidence of a second-degree AV block Mobitz 1 and evidence of a 2-1 high-grade AV block. This may be secondary to underlying CAD. At the present time she appears to be symptomatically and hemodynamically stable. Hopefully this will improve with the RCA PCI. In the interim, her beta marlyn will be on hold. 3. Hyperlipidemia The will need to continue risk factor evaluation and care. 4. HTN Her blood pressure will need to be followed. Her medications will need to be adjusted deemed appropriate. 5. COPD The does have a history of underlying COPD. This may be can contributing to her chronic shortness of breath and dyspnea. She will need to continue evaluation care per internal medicine. 6. Right inguinal area ecchymoses The right inguinal area demonstrates ecchymoses. There is no obvious mass at this time. The patient, her exam, her H/H will be followed. She will also have an arterial duplex study to evaluate for any obvious femoral artery compromise. 7. Ascending aortic aneurysm She was found to have an ascending aortic aneurysm. This will be further assessed with a chest CT scan. She will eventually need to be evaluated by CT surgery. At the same time, based upon her PVD concerns she will also have an abdominal CT scan to evaluate for any obvious evidence of AAA, etc.. The above was discussed with the patient and her family members present. This note was generated using a voice recognition system and there may be incorrect words, spelling or punctuation that were not noted when reviewing the office note prior to saving.
--- NOTE | 2018-11-12 18:34 | CL.D_ITS ---
Patient Name: DIALLO FARMER Study Date: 11/12/2018 Performing: João Carlson MD Ht: 62 inches 157 cm : 1945 Wt: 200.9 lbs 91 kg Age: 73 Gender: female BSA: 1.91 PROCEDURE(S) PERFORMED [id number]/COR/LV BA51-EMT W OR WO PTCA, SINGLE CORONARY ARTERY CLINICAL PROFILE AND INDICATIONS Patient presents with NSTEMI for urgent cardiac cath Indications: Suspected CAD, ACS <= 24 hrs, Suspected CAD Heart Failure: None Stress/Imaging Stress/Image Study Performed: No Stress/Image Study Performed: No Angina Classification Anginal Classification w/in 2 Weeks: CCS IV CAD Presentations: Non-STEMI. Non-STEMI. Symptom onset Date/Time: 11/11/2017 Time Not Available Comorbidities/Risk Factors: Current/Recent Smoker (< 1year) Hypertension Dyslipidemia Peripheral Arterial Disease Chronic Lung Disease CONCLUSIONS Elevated Left Ventricular End Diastolic Pressure Normal LV size, wall motion,and systolic function LVEF: by LV gram 65 % [place] Multivessel CAD (Predominantly RCA) Aortic Root Aneurysm RECOMMENDATIONS Risk factor modification Medical therapy Referred for immediate PCI Consider Chest CT scan (IV contrast) to evaluate the thoracic / ascending aortic aneuyrsm CV surgical eval for ascending aortic root aneurysm. DESCRIPTION OF PROCEDURE The patient arrived to the procedure lab. The risks and benefits of the procedure as well as a full d escription of our services here and current unavailability of surgical backup were fully explained to the patient and/or their significant other prior to the catheterization. The Timeout was completed, verifying the correct patient and procedure. The patient's procedural site was prepped and draped in the usual fashion. Local anesthetic was given subcutaneously to right groin region with Lidocaine 2%. Using a modified Seldinger technique, arterial access was obtained via the right femoral artery, a 4 Fr sheath was inserted Left Coronary Artery selective angiography was performed in multiple views us ing a 4 Fr. JL5 catheter. Right Coronary Artery selective angiography was then performed in multiple views using a 4 Fr. 3DRC catheter. Left Ventriculography was performed in ASHLEY projection using a 4 Fr . Pigtail catheter. LV to AO pullback pressures were then recorded.Contrast was injected through the sheath and the Right Iliac and Femoral artery were assessed for possible closure device.T he arterial sheath was pulled and manual compression applied until hemostasis is achieved. CORONARY ANGIOGRAPHY DOMINANCE: Right Dominant LEFT HEART ASSESSMENT Left Ventricular Ejection Fraction: by LV Gram 65 % Normal LV wall motion Elevated Left Ventricular End Diastolic Pressure LVEDP: 21 mmHg LEFT MAIN: Angiographically normal LEFT ANTERIOR DECENDING ARTERY: PROX LAD: Mild luminal irregularities, Mild luminal irregularities CIRCUMFLEX ARTERY: Angiographically normal PROX CIRC: Mild luminal irregularities OM 2: Proximal - Mild luminal irregularities RIGHT CORONARY ARTERY: MID RCA: is subtotally occluded with the distal RCA and RPDA system filling late and faintly and also from left to right collateral flow ACUTE MARGINAL: Mild luminal irregularities AORTIC ROOT: Aneurysm COMPLICATIONS No Complications PROCEDURE MEDICATIONS Versed 1 mg IV Oxygen: 2 L/min via nasal cannula Oxygen: 4 L/min via nasal cannula Heparin 6000 unit(s) IV 11/12/2018 09:42:58 Nitro 200 mcg IC 11/12/2018 09:47:50 Nitro 200 mcg IC 11/12/2018 09:47:50 SUMMARY OF HEMODYNAMIC DATA Time AIR REST ECG 09:03:07 AO 109/58 (79) SA 09:20:33 LV 155/10, 21 09:36:09 LV 141/11, 21 09:36:16 LV 141/17, 24 09:37:58 LVp 130/0, 32 09:38:13 AOp 147/58 (88) 09:38:18 AO 94/41 (56) 10:06:51 Signed By João Carlson MD On 11/12/2018 6:33:34 PM João Carlson MD
[2018-11-12] MEDS: 0.9% Normal Saline 1,000 ML 75 ML IV (19:00)
[2018-11-12] MEDS: Atorvastatin Calcium 80 MG Tablet PO (21:53)
[2018-11-12] MEDS: Acetaminophen 325 MG Tablet 650 MG PO (22:17)
[2018-11-13] VITALS (21 sets, daily range): BP systolic 98–146; BP diastolic 49–84; PULSE 48–71; RESP 17–28; TEMP 36.6–36.8; O2SAT 95–99
[2018-11-13] MEDS: Acetaminophen 325 MG Tablet 650 MG PO ×3 (05:24→23:32)
--- NOTE | 2018-11-13 05:55 | CT_ITS ---
STUDY: CT CHEST WITH CONTRAST REASON FOR EXAM: Female, 73 years old. History of thoracic aortic aneurysm. RADIATION DOSAGE (If Supplied By Facility): CTDIvol = ( 21.22 ) mGy, DLP = ( 1282.27 ) mGycm TECHNIQUE: Transaxial imaging was performed following intravenous administration of 100ML ml of Isovue 370 contrast material. Multiplanar coronal and sagittal images were reformatted. Individualized dose optimization techniques were used for this CT. COMPARISON: Comparison is made with prior study dated March 18, 2017. FINDINGS: Small hypodense nodules in the thyroid gland suggestive of goiter is unchanged. Stable small bilateral axillary lymph nodes. Increased linear markings with areas of confluence in both lower lobe suggestive of scarring and atelectasis. Also suspect a mild degree of bronchiectasis at the lung bases. Tiny bilateral pleural effusions. Small pericardial effusion. Normal mediastinum. Normal hilar regions. Normal enhanced pulmonary arteries. There is dilatation of the proximal descending aorta with a transverse dimension of 5.6 cm. AP dimension measures 4.6 cm. There is dilatation of the distal portion of the thoracic aorta as it enters the diaphragmatic hiatus. This measures 4.2 cm. Calcific plaque is seen throughout the course of the aortic arch and thoracic aorta. There is demineralization of the thoracic spine. There is a 3.2 cm x 1.9 cm inhomogeneous mass in the left adrenal gland. Low density seen within it. Correlation with MRI examination is recommended for assessment of possible adenoma. Multiple small gallstones are seen within the gallbladder lumen. IMPRESSION: Dilatation of the descending thoracic aorta with a transverse dimension of 5.6 cm. Focal dilatation of the descending thoracic aorta at the level the aortic diaphragmatic hiatus. Mild increased markings at the lung bases suggestive of scarring. Small pericardial effusion. Electronically Signed: Nelson Coello MD at 14:39 EST , Service support , STUDY: CT ABDOMEN AND PELVIS WITH CONTRAST REASON FOR EXAM: Female, 73 years old. RADIATION DOSAGE (If Supplied By Facility): CTDIvol = ( 21 ) mGy, DLP = ( 1282.27 ) mGycm TECHNIQUE: Transaxial images were obtained from the dome of the diaphragm to the symphysis pubis without oral contrast. 100ML ml of Isovue 370 contrast was administered. Sagittal and coronal images were reconstructed. Individualized dose optimization techniques were used for this CT. COMPARISON: None. FINDINGS: Mild increased markings at the lung bases suggestive of scarring with small bilateral effusions. Small pericardial effusion. Normal liver. There are multiple small gallstones. Normal spleen. Normal pancreas. There is a 3.2 cm x 1.9 cm inhomogeneous nodule in the left adrenal gland. Correlation with MRI is recommended for further evaluation. There is a 2.3 cm x 1.6 cm cyst in the mid anterior portion of the right kidney. Normal left kidney. Normal visualized stomach. Normal small intestine. Normal colon. The appendix is visualized and appears normal. There is diffuse atherosclerotic calcification of the abdominal aorta, without a demonstrated aneurysm. Normal inferior vena cava. Normal retroperitoneum. A Welsh catheter is seen within the urinary bladder. The urinary bladder is not adequately filled. There is a 4.4 cm x 5.1 cm cyst in the left adnexa suggestive of a left ovarian cyst. Enlarged fibroid uterus with thick calcifications. Multiple small bilateral renal lymph nodes. Increased markings within the subcutaneous fat overlying the region of the right groin. There are mild degenerative changes of the visualized lumbar spine. CT/Chest WITH Contrast IMPRESSION: Findings suggestive of mild bibasilar scarring and small bilateral effusions. Multiple gallstones. Left adrenal mass. Left ovarian cyst. Enlarged fibroid uterus. Electronically Signed: Nelson Coello MD at 14:43 EST , Service support ,
--- NOTE | 2018-11-13 05:55 | CT_ITS ---
STUDY: CT CHEST WITH CONTRAST REASON FOR EXAM: Female, 73 years old. History of thoracic aortic aneurysm. RADIATION DOSAGE (If Supplied By Facility): CTDIvol = ( 21.22 ) mGy, DLP = ( 1282.27 ) mGycm TECHNIQUE: Transaxial imaging was performed following intravenous administration of 100ML ml of Isovue 370 contrast material. Multiplanar coronal and sagittal images were reformatted. Individualized dose optimization techniques were used for this CT. COMPARISON: Comparison is made with prior study dated March 18, 2017. FINDINGS: Small hypodense nodules in the thyroid gland suggestive of goiter is unchanged. Stable small bilateral axillary lymph nodes. Increased linear markings with areas of confluence in both lower lobe suggestive of scarring and atelectasis. Also suspect a mild degree of bronchiectasis at the lung bases. Tiny bilateral pleural effusions. Small pericardial effusion. Normal mediastinum. Normal hilar regions. Normal enhanced pulmonary arteries. There is dilatation of the proximal descending aorta with a transverse dimension of 5.6 cm. AP dimension measures 4.6 cm. There is dilatation of the distal portion of the thoracic aorta as it enters the diaphragmatic hiatus. This measures 4.2 cm. Calcific plaque is seen throughout the course of the aortic arch and thoracic aorta. There is demineralization of the thoracic spine. There is a 3.2 cm x 1.9 cm inhomogeneous mass in the left adrenal gland. Low density seen within it. Correlation with MRI examination is recommended for assessment of possible adenoma. Multiple small gallstones are seen within the gallbladder lumen. IMPRESSION: Dilatation of the descending thoracic aorta with a transverse dimension of 5.6 cm. Focal dilatation of the descending thoracic aorta at the level the aortic diaphragmatic hiatus. Mild increased markings at the lung bases suggestive of scarring. Small pericardial effusion. Electronically Signed: Nelson Coello MD at 14:39 EST , Service support , STUDY: CT ABDOMEN AND PELVIS WITH CONTRAST REASON FOR EXAM: Female, 73 years old. RADIATION DOSAGE (If Supplied By Facility): CTDIvol = ( 21 ) mGy, DLP = ( 1282.27 ) mGycm TECHNIQUE: Transaxial images were obtained from the dome of the diaphragm to the symphysis pubis without oral contrast. 100ML ml of Isovue 370 contrast was administered. Sagittal and coronal images were reconstructed. Individualized dose optimization techniques were used for this CT. COMPARISON: None. FINDINGS: Mild increased markings at the lung bases suggestive of scarring with small bilateral effusions. Small pericardial effusion. Normal liver. There are multiple small gallstones. Normal spleen. Normal pancreas. There is a 3.2 cm x 1.9 cm inhomogeneous nodule in the left adrenal gland. Correlation with MRI is recommended for further evaluation. There is a 2.3 cm x 1.6 cm cyst in the mid anterior portion of the right kidney. Normal left kidney. Normal visualized stomach. Normal small intestine. Normal colon. The appendix is visualized and appears normal. There is diffuse atherosclerotic calcification of the abdominal aorta, without a demonstrated aneurysm. Normal inferior vena cava. Normal retroperitoneum. A Welsh catheter is seen within the urinary bladder. The urinary bladder is not adequately filled. There is a 4.4 cm x 5.1 cm cyst in the left adnexa suggestive of a left ovarian cyst. Enlarged fibroid uterus with thick calcifications. Multiple small bilateral renal lymph nodes. Increased markings within the subcutaneous fat overlying the region of the right groin. There are mild degenerative changes of the visualized lumbar spine. CT/Abdomen/Pelvis WITH Contrast IMPRESSION: Findings suggestive of mild bibasilar scarring and small bilateral effusions. Multiple gallstones. Left adrenal mass. Left ovarian cyst. Enlarged fibroid uterus. Electronically Signed: Nelson Coello MD at 14:43 EST , Service support ,
[2018-11-13 06:01] LABS: Hematocrit 37.3 % (37-47); Hemoglobin 12.3 g/dl (12.0-15.0); Mean Corpuscular Hgb 32.4 pg (27.0-32.0); Mean Corpuscular Volume 98.2 fL (81-99); Mean Platelet Vol. 11.4 fl (6.2-12.0); Platelet Count 198 K/mm3 (150-450); RBC Distribution Width CV 15.8 % (11.6-14.6); RBC Distribution Width SD 54.8 fl (35.1-43.9); White Blood Count 12.1 K/mm3 (4.4-11.0)
[2018-11-13 06:02] LABS: Anion Gap 9 (5-15); BUN 25 mg/dL (7-18); BUN/Creat Ratio 35.8 RATIO (10-20); Calcium,Total 8.5 mg/dL (8.5-10.1); Chloride 102 mmol/L (98-107); EST Glomerular Filtration Rate 88 mL/min (>60); Est Glom Filt Rate - Afr Amer 106 mL/min (>60); Estimated Creatinine Clearance 40.22 ml/min; Glucose 126 mg/dL (74-106); Potassium 3.5 mmol/L (3.5-5.1); Sodium Level 142 mmol/L (136-145)
[2018-11-13 06:06] LABS: Scan Indicated on CBC? Y/N NO
[2018-11-13] MEDS: Ipratropium/Albuterol Sulfate 3 ML AMPUL.NEB INHALATION ×3 (06:40→18:43)
[2018-11-13] MEDS: Budesonide Respules 0.5 MG/2 ML AMPUL.NEB. INHALATION ×2 (06:40→18:43)
--- NOTE | 2018-11-13 07:20 | PN_ITS ---
Patient Problems: Active and Suspected Problems NSTEMI (non-ST elevated myocardial infarction) (Acute) Hyperlipidemia (Acute) Conduction disorder of the heart (Acute) Subjective: LATE ENTRY NOTE FOR 11/12/18; Patient is a 73-year-old lady admitted with chest pain and assessment of the non-STEMI was made patient underwent left heart catheterization with PCI/KEISHA to an RCA lesion. Patient was also found to have ascending aortic aneurysm. Patient seen after the procedure complaining of low back pain Objective: GENERAL: cooperative HEENT: Atraumatic; EYES; Anicteric, Normal Conjunctiva NECK; supple, normal thyroid, RESPIRATORY: Diminished to auscultation bilaterally, CARDIOVASCULAR: Regular S1 S2, GI: soft, non-tender, normoactive bowel sounds, : No Renal angle tenderness; EXTREMITIES: Right groin hematoma MUSCULOSKELETAL: No Joint Tenderness; NEURO: Awake; no lateralizing signs. SKIN: Right groin hematoma PSYCH; Normal affect Vitals/I&O's: Vital Signs Temp Pulse Resp BP Pulse Ox 98.3 F 71 19 H 146/80 H 97 11/13/18 04:00 11/13/18 07:11 11/13/18 07:11 11/13/18 06:00 11/13/18 07:11 Oxygen Flow Rate (L/min) 2 Oxygen Delivery Method Nasal Cannula Weight: 91.8 kg Body Mass Index (BMI) 36.6 Intake and Output for Last 24 Hours 11/11/18 11/12/18 11/13/18 23:59 23:59 23:59 Intake Total 1480 / 1480 1481 / 1481 Output Total 1275 / 1275 275 / 275 Balance 205 / 205 1206 / 1206 Laboratory Results 11/12/18 10:38: Activated Clotting Time 175 H 11/12/18 15:15: Hgb 12.5, Hct 37.9 11/13/18 05:40: WBC 12.1 H, RBC 3.80 L, Hgb 12.3, Hct 37.3, MCV 98.2, MCH 32.4 H , MCHC 33.0, RDW 15.8 H, RDW Differential 54.8 H, Plt Count 198, MPV 11.4 11/13/18 05:40: Sodium 142, Potassium 3.5, Chloride 102, Carbon Dioxide 31.0, Anion Gap 9, BUN 25 H, Creatinine 0.70, Estim Creat Clear Calc 40.22, Est GFR (MDRD) Af Amer 106, Est GFR (MDRD) Non-Af 88, BUN/Creatinine Ratio 35.8 H, Glucose 126 H, Calcium 8.5 Current Medications Acetaminophen (Tylenol) 650 mg PO Q6H PRN PRN PRN Reason: Mild Pain (0-2/10) Last Admin: 11/13/18 05:24 Dose: 650 mg Albuterol/Ipratropium (Duoneb) 3 ml INHALATION Q6HWA.RT [facility] Last Admin: 11/13/18 06:40 Dose: 3 ml Aspirin (Ecotrin) 81 mg PO DAILY@0800 [facility] Last Admin: 11/12/18 08:01 Dose: 81 mg Atorvastatin Calcium (Lipitor) 80 mg PO QHS [facility] Last Admin: 11/12/18 21:53 Dose: 80 mg Atropine Sulfate () 0.5 mg IV UD PRN PRN Reason: HR <50 bpm Bisacodyl (Dulcolax) 5 mg PO DAILY PRN PRN PRN Reason: Constipation Budesonide (Pulmicort Aerosol) 0.5 mg INHALATION Q12H.RT [facility] Last Admin: 11/13/18 06:40 Dose: 0.5 mg Cyclobenzaprine HCl (Flexeril) 5 mg PO TID PRN PRN PRN Reason: SPASMS Last Admin: 11/12/18 18:16 Dose: 5 mg Ergocalciferol (Vitamin D) 50,000 unit PO QMONTH TIMO Heparin Sodium (Beef Lung) (Heparin 500 Unit/5 Ml (100/Ml)) 500 unit IV UD PRN PRN Reason: HEPARIN FLUSH Sodium Chloride () 250 mls @ 15 mls/hr IV .[id number] PRN PRN Reason: SALINE FLUSH Sodium Chloride () 1,000 mls @ 0 mls/hr IV .Q0M TIMO Sodium Chloride () 1,000 mls @ 75 mls/hr IV .[id number] [facility] Last Admin: 11/12/18 19:00 Dose: 75 mls/hr Labetalol HCl (Trandate) 5 mg IV X1 PRN PRN Reason: SBP > 160 when pulling sheath Lorazepam (Ativan) 1 mg PO Q6H PRN PRN PRN Reason: BACK SPASMS/ANXIETY Losartan Potassium (Cozaar) 100 mg PO DAILY [facility] Last Admin: 11/12/18 08:01 Dose: 100 mg Magnesium Hydroxide (Milk Of Magnesia) 30 ml PO DAILY PRN PRN Reason: Constipation Morphine Sulfate () 2 mg IV Q4H PRN PRN PRN Reason: Mild back pain (0-2/10) Last Admin: 11/12/18 18:16 Dose: 2 mg Nicotine (Nicoderm Cq (Pbkc)) 21 mg TRANSDERM. DAILY [facility] Last Admin: 11/12/18 13:00 Dose: 21 mg Nicotine Polacrilex ([place]ugby Nicotine (Bkc)) 2 mg PO Q2H PRN PRN PRN Reason: Nicotine Craving Nitroglycerin (Nitrostat) 0.4 mg SUBLINGUAL Q5M PRN PRN Reason: CARDIAC/CHEST PAIN Nutritional Formula (Lactose Free) (Ensure Enlive) 120 ml PO 4X/DAY [facility] Last Admin: 11/12/18 21:52 Dose: 120 ml Oxycodone HCl (Oxyir) 5 mg PO Q4H PRN PRN PRN Reason: SEVERE PAIN (6-10/10) Last Admin: 11/12/18 17:17 Dose: 5 mg Psyllium Hydrophilic Mucilloid (Metamucil) 1 packet PO DAILY PRN PRN PRN Reason: CONSTIPATION Sodium Chloride () 5 - 15 ml IV UD PRN PRN Reason: SALINE FLUSH Last Admin: 11/12/18 06:14 Dose: 10 ml Sodium Chloride () 500 ml IV BOLUS PRN PRN Reason: VASO-VAGAL PROTOCOL Ticagrelor (Brilinta) 90 mg PO BID [facility] Last Admin: 11/12/18 21:53 Dose: 90 mg Medical Necessity - Tobacco Use Smoking Status: Current every day smoker Tobacco Use: Cigarettes Assessment/Plan All Active Problems NSTEMI (non-ST elevated myocardial infarction) (Acute) Hyperlipidemia (Acute) Conduction disorder of the heart (Acute) Patient is a 73-year-old lady admitted with chest pain and assessment of the non-STEMI was made patient underwent left heart catheterization with PCI/KEISHA to an RCA lesion. Patient was also found to have ascending aortic aneurysm. 1. Acute non-STEMI: Patient was managed per protocol with low molecular weight heparin, dual antiplatelet therapy beta-blockers statin therapy cardiology consulted patient underwent left heart catheterization on 11/12/2018 was found to have an RCA lesion for which she underwent PCI/KEISHA 2. Aortic aneurysm patient scheduled to undergo CTA of the chest for subsequent evaluation 3. Hypokalemia present on admission corrected per protocol 4. Dyslipidemia: Patient is on statin therapy did continue 5. Conduction system the patient was found to have intermittent second-degree AV block Mobitz 1 this was felt to be secondary to patient's underlying lesion patient has been monitored continuously on telemetry 6. COPD currently not in exacerbation did continue patient's Advair 7. Tobacco dependence counseled on cessation, offered nicotine patch for tobacco cravings Code Visit Inpatient E&M: 51640 [facility]
--- NOTE | 2018-11-13 07:29 | PCM.PN.HOSP ---
Patient Problems: Active and Suspected Problems NSTEMI (non-ST elevated myocardial infarction) (Acute) Hyperlipidemia (Acute) Conduction disorder of the heart (Acute) Subjective: Patient seen still complains of back pain. Was started on Flexeril and OxyIR a day prior. Scheduled to undergo CTA of the chest to evaluate her ascending aortic aneurysm. Also to undergo duplex study to evaluate for possible pseudoaneurysm in the right groin Objective: GENERAL: cooperative HEENT: Atraumatic; EYES; Anicteric, Normal Conjunctiva NECK; supple, normal thyroid, RESPIRATORY: Diminished to auscultation bilaterally, CARDIOVASCULAR: Regular S1 S2, GI: soft, non-tender, normoactive bowel sounds, : No Renal angle tenderness; EXTREMITIES: Right groin hematoma MUSCULOSKELETAL: No Joint Tenderness; NEURO: Awake; no lateralizing signs. SKIN: Right groin hematoma PSYCH; Normal affect Vitals/I&O's: Vital Signs Temp Pulse Resp BP Pulse Ox 98.3 F 71 19 H 146/80 H 97 11/13/18 04:00 11/13/18 06:40 11/13/18 06:40 11/13/18 06:00 11/13/18 06:40 Oxygen Flow Rate (L/min) 2 Oxygen Delivery Method Nasal Cannula Weight: 91.8 kg Body Mass Index (BMI) 36.6 Intake and Output for Last 24 Hours 11/11/18 11/12/18 11/13/18 23:59 23:59 23:59 Intake Total 1480 / 1480 1481 / 1481 Output Total 1275 / 1275 275 / 275 Balance 205 / 205 1206 / 1206 Laboratory Results 11/12/18 10:38: Activated Clotting Time 175 H 11/12/18 15:15: Hgb 12.5, Hct 37.9 11/13/18 05:40: WBC 12.1 H, RBC 3.80 L, Hgb 12.3, Hct 37.3, MCV 98.2, MCH 32.4 H, MCHC 33.0, RDW 15.8 H, RDW Differential 54.8 H, Plt Count 198, MPV 11.4 11/13/18 05:40: Sodium 142, Potassium 3.5, Chloride 102, Carbon Dioxide 31.0, Anion Gap 9, BUN 25 H, Creatinine 0.70, Estim Creat Clear Calc 40.22, Est GFR (MDRD) Af Amer 106, Est GFR (MDRD) Non-Af 88, BUN/Creatinine Ratio 35.8 H, Glucose 126 H, Calcium 8.5 Current Medications Acetaminophen (Tylenol) 650 mg PO Q6H PRN PRN PRN Reason: Mild Pain (0-2/10) Last Admin: 11/13/18 05:24 Dose: 650 mg Albuterol/Ipratropium (Duoneb) 3 ml INHALATION Q6HWA.RT [facility] Last Admin: 11/13/18 06:40 Dose: 3 ml Aspirin (Ecotrin) 81 mg PO DAILY@0800 [facility] Last Admin: 11/12/18 08:01 Dose: 81 mg Atorvastatin Calcium (Lipitor) 80 mg PO QHS [facility] Last Admin: 11/12/18 21:53 Dose: 80 mg Atropine Sulfate () 0.5 mg IV UD PRN PRN Reason: HR <50 bpm Bisacodyl (Dulcolax) 5 mg PO DAILY PRN PRN PRN Reason: Constipation Budesonide (Pulmicort Aerosol) 0.5 mg INHALATION Q12H.RT [facility] Last Admin: 11/13/18 06:40 Dose: 0.5 mg Cyclobenzaprine HCl (Flexeril) 5 mg PO TID PRN PRN PRN Reason: SPASMS Last Admin: 11/12/18 18:16 Dose: 5 mg Ergocalciferol (Vitamin D) 50,000 unit PO QMONTH [facility] Heparin Sodium (Beef Lung) (Heparin 500 Unit/5 Ml (100/Ml)) 500 unit IV UD PRN PRN Reason: HEPARIN FLUSH Sodium Chloride () 250 mls @ 15 mls/hr IV .[id number] PRN PRN Reason: SALINE FLUSH Sodium Chloride () 1,000 mls @ 0 mls/hr IV .Q0M [facility] Sodium Chloride () 1,000 mls @ 75 mls/hr IV .[id number] [facility] Last Admin: 11/12/18 19:00 Dose: 75 mls/hr Labetalol HCl (Trandate) 5 mg IV X1 PRN PRN Reason: SBP > 160 when pulling sheath Lorazepam (Ativan) 1 mg PO Q6H PRN PRN PRN Reason: BACK SPASMS/ANXIETY Losartan Potassium (Cozaar) 100 mg PO DAILY [facility] Last Admin: 11/12/18 08:01 Dose: 100 mg Magnesium Hydroxide (Milk Of Magnesia) 30 ml PO DAILY PRN PRN Reason: Constipation Morphine Sulfate () 2 mg IV Q4H PRN PRN PRN Reason: Mild back pain (0-2/10) Last Admin: 11/12/18 18:16 Dose: 2 mg Nicotine (Nicoderm Cq (Pbkc)) 21 mg TRANSDERM. DAILY [facility] Last Admin: 11/12/18 13:00 Dose: 21 mg Nicotine Polacrilex (Rugby Nicotine (Bkc)) 2 mg PO Q2H PRN PRN PRN Reason: Nicotine Craving Nitroglycerin (Nitrostat) 0.4 mg SUBLINGUAL Q5M PRN PRN Reason: CARDIAC/CHEST PAIN Nutritional Formula (Lactose Free) (Ensure Enlive) 120 ml PO 4X/DAY [facility] Last Admin: 11/12/18 21:52 Dose: 120 ml Oxycodone HCl (Oxyir) 5 mg PO Q4H PRN PRN PRN Reason: SEVERE PAIN (6-10/10) Last Admin: 11/12/18 17:17 Dose: 5 mg Psyllium Hydrophilic Mucilloid (Metamucil) 1 packet PO DAILY PRN PRN PRN Reason: CONSTIPATION Sodium Chloride () 5 - 15 ml IV UD PRN PRN Reason: SALINE FLUSH Last Admin: 11/12/18 06:14 Dose: 10 ml Sodium Chloride () 500 ml IV BOLUS PRN PRN Reason: VASO-VAGAL PROTOCOL Ticagrelor (Brilinta) 90 mg PO BID [facility] Last Admin: 11/12/18 21:53 Dose: 90 mg Medical Necessity - Tobacco Use Smoking Status: Current every day smoker Tobacco Use: Cigarettes Assessment/Plan All Active Problems NSTEMI (non-ST elevated myocardial infarction) (Acute) Hyperlipidemia (Acute) Conduction disorder of the heart (Acute) Patient is a 73-year-old lady admitted with chest pain and assessment of the non-STEMI was made patient underwent left heart catheterization with PCI/KEISHA to an RCA lesion. Patient was also found to have ascending aortic aneurysm. 1. Acute non-STEMI: Patient was managed per protocol with low molecular weight heparin, dual antiplatelet therapy beta-blockers statin therapy cardiology consulted patient underwent left heart catheterization on 11/12/2018 was found to have an RCA lesion for which she underwent PCI/KEISHA 2. Aortic aneurysm patient scheduled to undergo CTA of the chest for subsequent evaluation 3. Hypokalemia present on admission corrected per protocol 4. Dyslipidemia: Patient is on statin therapy did continue 5. Conduction system the patient was found to have intermittent second-degree AV block Mobitz 1 this was felt to be secondary to patient's underlying lesion patient has been monitored continuously on telemetry 6. COPD currently not in exacerbation did continue patient's Advair 7. Tobacco dependence counseled on cessation, offered nicotine patch for tobacco cravings Code Visit Inpatient E&M: [id number] [facility] [place] [facility] L3
[2018-11-13] MEDS: Morphine 2 MG/ML Syringe IV (08:50)
[2018-11-13] MEDS: 0.9% Normal Saline 1,000 ML 75 ML IV (08:53)
--- NOTE | 2018-11-13 09:35 | CASEMGMT ---
SW spoke w/pt regarding LW/POA. Daughter is also in the room. Daughter states they are completed but have not been notarized. She is going to check at home and bring the forms back. SW explained to pt and daughter that we can possibly complete the forms she started, or start new forms to complete. Pt was just given pain medication so SW let her know will bring in the forms w/this SW's card and the SW dept information if she would like to do the forms. SW explained she can call this SW or the SW dept after discharge to complete them. Pt states understanding. SW did bring pt back the forms w/the needed numbers to follow up. SW remains available if requested by pt. OLAYINKA Dominique, [employer]
[2018-11-13] MEDS: TICAGRELOR 90 MG TABLET PO ×2 (09:46→21:09)
[2018-11-13] MEDS: Losartan Potassium 100 MG Tablet PO (09:46)
[2018-11-13] MEDS: Aspirin E.C. 81 MG Tablet PO (09:46)
--- NOTE | 2018-11-13 10:16 | PN.CARD_ITS ---
Subjectve: The patient is awake and alert. She states she does feel better overall compared to yesterday especially with her low back discomfort. She notes she has not had any ongoing chest discomfort. She has not had any significant change in her respiratory status. She has not complained of her ongoing dizziness at this time. Objective: Vital Signs Temp Pulse Resp BP Pulse Ox 98.2 F 67 20 H 118/61 96 11/13/18 08:00 11/13/18 09:00 11/13/18 09:00 11/13/18 09:00 11/13/18 09:00 Oxygen Flow Rate (L/min) 3 Oxygen Delivery Method Nasal Cannula Weight: 202 lb 6.15 oz Body Mass Index (BMI) 36.6 Intake and Output for Last 24 Hours 11/11/18 11/12/18 11/13/18 23:59 23:59 23:59 Intake Total 1480 / 1480 1481 / 1481 Output Total 1275 / 1275 275 / 275 Balance 205 / 205 1206 / 1206 General: Awake, Alert, Oriented x 3, Cooperative, Obese HEENT: Atraumatic, Normocephalic, PERRL, EOMI, Sclera Non Icteric Oral: Moist Mucosa Neck: Supple, Good ROM, No JVD Lungs: Clear to auscultation Cardiovascular: Regular Rhythm, Normal S1, Normal S2 Vascular: Normal Femoral Pulses Abdomen: Bowel Sounds Present, Soft, Non Tender Extremities: No edema Musculoskeletal: - - Right inguinal area: Ecchymotic; femoral pulse 2+/4+; no obvious bruit appreciated Neurological: No Focal Motor or Sensory Deficit Psych/Mental Status: Appropriate 11/12/18 15:15: Hgb 12.5, Hct 37.9 11/13/18 05:40: WBC 12.1 H, RBC 3.80 L, Hgb 12.3, Hct 37.3, MCV 98.2, MCH 32.4 H , MCHC 33.0, RDW 15.8 H, RDW Differential 54.8 H, Plt Count 198, MPV 11.4 11/13/18 05:40: Sodium 142, Potassium 3.5, Chloride 102, Carbon Dioxide 31.0, Anion Gap 9, BUN 25 H, Creatinine 0.70, Est GFR (MDRD) Af Amer 106, Est GFR (MDRD) Non-Af 88, BUN/Creatinine Ratio 35.8 H, Glucose 126 H, Calcium 8.5 Rhythm:Sinus rhythm; 2nd degree AV block Mobitz 1; 2-1 AV block EKG: ECHO:Pending Right femoral arterial duplex study: Pending Chest / abdominal CT Scan:Pending Medical Necessity - Tobacco Use Smoking Status: Current every day smoker Tobacco Use: Cigarettes Assessment/Plan 1. NSTEMI The patient presents with signs and symptoms and objective findings compatible with a non-ST segment elevation [place]. She is going to continue to be monitored. She will continue medical therapy. She has undergone further evaluation with diagnostic cardiac catheterization. This led to findings of right coronary artery disease. She underwent PCI. She will need continued medical management and follow up. 2. Conduction disorder He has been found to have an underlying conduction system disorder with evidence of a second-degree AV block Mobitz 1 and evidence of a 2-1 high-grade AV block. This may be secondary to underlying CAD. Her beta blockers have remained on hold. Hopefully with recanalization of a right coronary artery her conduction system abnormality it will improve. Otherwise she may need to be considered for further input regarding the possibility of the need of a permanent pacemaker. 3. Thoracic aortic aneurysm: Ascending The patient was found during cardiac catheterization to have what appeared to be a thoracic aortic aneurysm-ascending. She is going to go through further evaluation with a chest CT as well as and abdominal/pelvic CT to evaluate the extent of her thoracic aortic aneurysm and based upon what appeared to be tortuosity in her abdominal aorta any evidence of abdominal aortic aneurysm as well. 4. Hyperlipidemia The will need to continue risk factor evaluation and care. 5. HTN Her blood pressure will need to be followed. Her medications will need to be adjusted deemed appropriate. 6. COPD The does have a history of underlying COPD. This may be can contributing to her chronic shortness of breath and dyspnea. She will need to continue evaluation care per internal medicine. 7. Right inguinal area ecchymoses She does have an area of ecchymosis in the right inguinal area. Her right femoral pulses appear to be intact at this time with no obvious bruit. However she is going to go through further evaluation of her peripheral vascular chair with a right femoral artery duplex study to evaluate for any obvious evidence of fistula, pseudoaneurysm, etc. This note was generated using a voice recognition system and there may be incorrect words, spelling or punctuation that were not noted when reviewing the office note prior to saving.
--- NOTE | 2018-11-13 10:59 | CL.I_ITS ---
Patient Name: DIALLO FARMER Study Date: 11/12/2018 Performing: Gregory Monique MD Ht: 61.81 inches 157 cm : 1945 Wt: 200.62 lbs 91 kg Age: 73 Gender: female BSA: 1.91 PROCEDURE(S) PERFORMED DV30-MDL W OR WO PTCA, SINGLE CORONARY ARTERY CLINICAL PROFILE AND CO-MORBIDITIES Patient presents with NSTEMI for urgent cardiac cath Indications: Suspected CAD, ACS <= 24 hrs, Suspected CAD Heart Failure: None Stress/Imaging Stress/Image Study Performed: No Stress/Image Study Performed: No Angina Classification Anginal Classification w/in 2 Weeks: CCS IV CAD Presentations: Non-STEMI. Non-STEMI. Symptom onset Date/Time: 11/11/2017 Time Not Available Comorbidities/Risk Factors: Current/Recent Smoker (< 1year) Hypertension Dyslipidemia Peripheral Arterial Disease Chronic Lung Disease CONCLUSIONS Successful PTCA/KEISHA of mid RCA using double wire technique, utilizing a 2.25 x 38 Promus Syngery, fol lowed immediately uptstream with a 2.5 x 24 Promus, post dilated with a 2.5 x 12 NC throughout, follo wed by a 3.0 x 8 NC in proximal 1/3 of stent; 100%-->0%, no dissection. RECOMMENDATIONS Highly recommend quitting all tobacco products Follow up with primary v/stol landing signal officer Risk factor modification ASA Indefinitley Plavix for at least 12 months Routine post interventional care Refer for Outpatient Cardiac Rehab Manual sheath removal per protocol Follow up with Dr. Aldo Garza on RFA due to hematoma and possible pseudoaneuyrsm. DESCRIPTION OF PROCEDURE The patient arrived to the procedure lab. The risks and benefits of the procedure as well as a full d escription of our services here and current unavailability of surgical backup were fully explained to the patient and/or their significant other prior to the catheterization. The Timeout was completed, verifying the correct patient and procedure. The patient's procedural site was prepped and draped in the usual fashion. Local anesthetic was given subcutaneously to right groin region with Lidocaine 2% Using a modified Seldinger technique,arterial access was obtained via the right femoral artery, a 4Fr sheath was inserted Left Coronary Artery selective angiography was performed in multiple views using a 4 Fr. JL5 catheter. Right Coronary Artery selective angiography was then performed in multiple vie ws using a 4 Fr. 3DRC catheter. Left Ventriculography was performed in ASHLEY projection using a 4 Fr. P igtail catheter. LV to AO pullback pressures were then recorded.The images were reviewed and options discussed. A decision was then made to proceed with an Intervention, IVUS or other adjunc t procedure. Arterial sheath was exchanged for a 6 Fr 55cm Sheath. HS II Guide catheter was inserted and engag ed into the RCA. AL 1 Guide catheter was inserted and engaged into the RCA. Runthrough Guide wire was advanced to the RCA. 2x12 Emerge Balloon catheter was inserted. Balloon catheter was advanced across lesion in the right coronary, mid. PTCA balloon inflated at 6 atms for 8 secs. PTCA balloon inflated at 8 atms for 12 secs. 2.25x38 Synergy Drug Eluting stent was inserted. Drug Eluting stent was remov ed intact, failed to cross lesion 2x12 Emerge Balloon catheter was reinserted Balloon catheter was ad vanced across lesion in the right coronary, mid. PTCA balloon inflated at 12 atms for 12 secs. PTCA b alloon inflated at 12 atms for 8 secs. PTCA balloon inflated at 12 atms for 6 secs. PTCA balloon infl ated at 12 atms for 6 secs. PTCA balloon inflated at 12 atms for 10 secs. Angiogram performed post ba lloon dilatation. PTCA balloon inflated at 12 atms for 8 secs. 2.25x38 Synergy Drug Eluting stent was reinserted Drug Eluting stent was removed intact, failed to cross lesion 2.5 x12 Em erge Balloon catheter was inserted. Balloon catheter was advanced across lesion in the right coronary , mid. PTCA balloon inflated at 6 atms for 10 secs. PTCA balloon inflated at 6 atms for 8 secs. PTCA balloon inflated at 6 atms for 8 secs. PTCA balloon inflated at 6 atms for 8 secs. PTCA balloon infla mehnaz at 6 atms for 8 secs. BMW Guide wire was inserted as a marilee wire BMW Guide wire was repositioned to the Right PDA 2.5x12 Emerge Balloon catheter was inserted. Balloon catheter was advanced across l esion in the right coronary, mid. PTCA balloon inflated at 8 atms for 12 secs. PTCA balloon inflated at 8 atms for 8 secs. PTCA balloon inflated at 8 atms for 8 secs. PTCA balloon inflated at 8 atms for 11 secs. PTCA balloon inflated at 10 atms for 10 secs. Drug Eluting stent was reinserted Drug Elutin g stent was advanced across the lesion in the right coronary, mid. Angiogram performed post stent deployment. 2.5x24 Synergy Drug Eluting stent was inserted. Drug Eluting stent was advance d across the lesion in the right coronary, mid. Drug Eluting stent was advanced across the lesion in the right coronary, mid. 2.5x12 NC Emerge Balloon catheter was inserted. Balloon catheter was advance d across lesion in the right coronary, mid. 3x8 NC Emerge Balloon catheter was inserted. Angiogram pe rformed post stent deployment. Contrast was injected through the sheath and the Right Iliac and Femor al artery were assessed for possible closure device. The arterial sheath was pulled and manual compr ession applied until hemostasis is achieved. INTERVENTION INFORMATION LESION SITE: RCA (Mid) Lesion Complexity: High/C, lesion at bifurcation: No, thrombus present: Yes, lesion length: 62 mm, cu lprit lesion: Yes Pre Stenosis: 100 % Pre intervention CAREN flow: 2 PROCEDURE: Drug Eluting Stent with pre and post dilatation Post Stenosis: 0 % Post intervention CAREN flow: 3 Lesion Devices: Medtronic 6 Fr HSII 100cm Guide Catheter Momin .014 BMW Lexa Straight 190cm Terumo .014 Runthrough Extra Floppy 180cm straight Medtronic 6 Fr AL1.0 100cm Guide Catheter Alvaro Sci EMERGE MR 2.00x12 BALLOON Alvaro Sci Synergy MR KEISHA 2.25x38 Alvaro Sci EMERGE MR 2.50x12 BALLOON Alvaro Sci Synergy MR KEISHA 2.50x24 Alvaro Sci NC EMERGE MR 2.50x12 BALLOON Alvrao Sci NC EMERGE MR 3.00x08 BALLOON COMPLICATIONS No Complications PROCEDURE MEDICATIONS Versed 1 mg IV Oxygen: 2 L/min via nasal cannula Oxygen: 4 L/min via nasal cannula Heparin 6000 unit(s) IV 11/12/2018 09:42:58 Nitro 200 mcg IC 11/12/2018 09:47:50 Nitro 200 mcg IC 11/12/2018 09:47:50 SUMMARY OF HEMODYNAMIC DATA Time AIR REST ECG 09:03:07 AO 109/58 (79) SA 09:20:33 LV 155/10, 21 09:36:09 LV 141/11, 21 09:36:16 LV 141/17, 24 09:37:58 LVp 130/0, 32 09:38:13 AOp 147/58 (88) 09:38:18 AO 94/41 (56) 10:06:51 Signed By Gregory Monique MD On 11/13/2018 10:58:15 AM Gregory Monique MD
--- NOTE | 2018-11-13 11:47 | EKG12_ITS ---
Test Reason : AM EKG Blood Pressure : / mmHG Vent. Rate : 071 BPM Atrial Rate : 090 BPM P-R Int : 000 ms QRS Dur : 114 ms QT Int : 428 ms P-R-T Axes : 055 046 079 degrees QTc Int : 465 ms Sinus rhythm with 2nd degree A-V block (Mobitz I) Abnormal ECG When compared with ECG of 12-NOV-2018 14:54, MANUAL COMPARISON REQUIRED, DATA IS UNCONFIRMED Confirmed by GERALD JESUS, SENAIT ([id number]), brands editor LETTY RIOJAS ([id number]) on 11/14/2018 3:48:06 PM Referred By: No Mancini Confirmed By:SENAIT DUARTE MD
[2018-11-13] MEDS: oxyCODONE 5 MG Tablet PO ×2 (14:43→21:09)
[2018-11-13] MEDS: Atorvastatin Calcium 80 MG Tablet PO (21:09)
[2018-11-14] VITALS (11 sets, daily range): BP systolic 113–152; BP diastolic 49–55; PULSE 53–69; RESP 17–22; TEMP 36.6; O2SAT 93–100
[2018-11-14] MEDS: 0.9% Normal Saline 1,000 ML 75 ML IV ×2 (02:04→15:46)
[2018-11-14] MEDS: Ipratropium/Albuterol Sulfate 3 ML AMPUL.NEB INHALATION ×2 (03:28→09:22)
[2018-11-14 05:12] LABS: Anion Gap 9 (5-15); BUN 22 mg/dL (7-18); BUN/Creat Ratio 40.4 RATIO (10-20); Calcium,Total 8.4 mg/dL (8.5-10.1); Chloride 100 mmol/L (98-107); Creatinine, Serum 0.54 mg/dL (0.55-1.02); EST Glomerular Filtration Rate 117 mL/min (>60); Est Glom Filt Rate - Afr Amer 141 mL/min (>60); Estimated Creatinine Clearance 40.22 ml/min; Glucose 131 mg/dL (74-106); Potassium 3.6 mmol/L (3.5-5.1); Sodium Level 139 mmol/L (136-145)
[2018-11-14] MEDS: Acetaminophen 325 MG Tablet 650 MG PO (07:08)
--- NOTE | 2018-11-14 08:33 | PN_ITS ---
Patient Problems: Active and Suspected Problems NSTEMI (non-ST elevated myocardial infarction) (Acute) Hyperlipidemia (Acute) Conduction disorder of the heart (Acute) Subjective: Patient seen. 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 These were discussed with patient by Dr. Carlson with recommendations for patient to be transferred to a tertiary care center. Patient and family to make a decision regarding their preference. Objective: GENERAL: cooperative HEENT: Atraumatic; EYES; Anicteric, Normal Conjunctiva NECK; supple, normal thyroid, RESPIRATORY: Diminished to auscultation bilaterally, CARDIOVASCULAR: Regular S1 S2, GI: soft, non-tender, normoactive bowel sounds, : No Renal angle tenderness; EXTREMITIES: Right groin hematoma MUSCULOSKELETAL: No Joint Tenderness; NEURO: Awake; no lateralizing signs. SKIN: Right groin hematoma PSYCH; Normal affect Vitals/I&O's: Vital Signs Temp Pulse Resp BP Pulse Ox 97.9 F 65 20 H 116/51 L 96 11/14/18 08:26 11/14/18 08:26 11/14/18 08:26 11/14/18 08:26 11/14/18 08:26 Oxygen Flow Rate (L/min) 1 Oxygen Delivery Method Nasal Cannula Weight: 91.8 kg Body Mass Index (BMI) 36.6 Intake and Output for Last 24 Hours 11/12/18 11/13/18 11/14/18 23:59 23:59 23:59 Intake Total 1480 / 1480 3214 / 3214 488 / 488 Output Total 1275 / 1275 900 / 900 150 / 150 Balance 205 / 205 2314 / 2314 338 / 338 Laboratory Results 11/14/18 04:50: Sodium 139, Potassium 3.6, Chloride 100, Carbon Dioxide 30.0, Anion Gap 9, BUN 22 H, Creatinine 0.54 L, Estim Creat Clear Calc 40.22, Est GFR (MDRD) Af Amer 141, Est GFR (MDRD) Non-Af 117, BUN/Creatinine Ratio 40.4 H, Glucose 131 H, Calcium 8.4 L Current Medications Acetaminophen (Tylenol) 650 mg PO Q6H PRN PRN PRN Reason: Mild Pain (0-2/10) Last Admin: 11/14/18 07:08 Dose: 650 mg Albuterol/Ipratropium (Duoneb) 3 ml INHALATION Q6HWA.RT [facility] Last Admin: 11/14/18 03:28 Dose: 3 ml Aspirin (Ecotrin) 81 mg PO DAILY@0800 [facility] Last Admin: 11/13/18 09:46 Dose: 81 mg Atorvastatin Calcium (Lipitor) 80 mg PO QHS [facility] Last Admin: 11/13/18 21:09 Dose: 80 mg Atropine Sulfate () 0.5 mg IV UD PRN PRN Reason: HR <50 bpm Bisacodyl (Dulcolax) 5 mg PO DAILY PRN PRN PRN Reason: Constipation Budesonide (Pulmicort Aerosol) 0.5 mg INHALATION Q12H.RT [facility] Last Admin: 11/13/18 18:43 Dose: 0.5 mg Cyclobenzaprine HCl (Flexeril) 5 mg PO TID PRN PRN PRN Reason: SPASMS Last Admin: 11/13/18 08:50 Dose: 5 mg Ergocalciferol (Vitamin D) 50,000 unit PO QMONTH [facility] Heparin Sodium (Beef Lung) (Heparin 500 Unit/5 Ml (100/Ml)) 500 unit IV UD PRN PRN Reason: HEPARIN FLUSH Sodium Chloride () 250 mls @ 15 mls/hr IV .[id number] PRN PRN Reason: SALINE FLUSH Sodium Chloride () 1,000 mls @ 0 mls/hr IV .Q0M [facility] Sodium Chloride () 1,000 mls @ 75 mls/hr IV .[id number] [facility] Last Admin: 11/14/18 02:04 Dose: 75 mls/hr Labetalol HCl (Trandate) 5 mg IV X1 PRN PRN Reason: SBP > 160 when pulling sheath Lorazepam (Ativan) 1 mg PO Q6H PRN PRN PRN Reason: BACK SPASMS/ANXIETY Losartan Potassium (Cozaar) 100 mg PO DAILY [facility] Last Admin: 11/13/18 09:46 Dose: 100 mg Magnesium Hydroxide (Milk Of Magnesia) 30 ml PO DAILY PRN PRN Reason: Constipation Morphine Sulfate () 2 mg IV Q4H PRN PRN PRN Reason: Mild back pain (0-2/10) Last Admin: 11/13/18 08:50 Dose: 2 mg Nicotine (Nicoderm Cq (Pbkc)) 21 mg TRANSDERM. DAILY [facility] Last Admin: 11/13/18 09:47 Dose: 21 mg Nicotine Polacrilex (Rugby Nicotine (Bkc)) 2 mg PO Q2H PRN PRN PRN Reason: Nicotine Craving Nitroglycerin (Nitrostat) 0.4 mg SUBLINGUAL Q5M PRN PRN Reason: CARDIAC/CHEST PAIN Nutritional Formula (Lactose Free) (Ensure Enlive) 120 ml PO 4X/DAY [facility] Last Admin: 11/13/18 21:08 Dose: Not Given Oxycodone HCl (Oxyir) 5 mg PO Q4H PRN PRN PRN Reason: SEVERE PAIN (6-10/10) Last Admin: 11/13/18 21:09 Dose: 5 mg Psyllium Hydrophilic Mucilloid (Metamucil) 1 packet PO DAILY PRN PRN PRN Reason: CONSTIPATION Sodium Chloride () 5 - 15 ml IV UD PRN PRN Reason: SALINE FLUSH Last Admin: 11/12/18 06:14 Dose: 10 ml Sodium Chloride () 500 ml IV BOLUS PRN PRN Reason: VASO-VAGAL PROTOCOL Ticagrelor (Brilinta) 90 mg PO BID [facility] Last Admin: 11/13/18 21:09 Dose: 90 mg Medical Necessity - Tobacco Use Smoking Status: Current every day smoker Tobacco Use: Cigarettes Assessment/Plan All Active Problems NSTEMI (non-ST elevated myocardial infarction) (Acute) Hyperlipidemia (Acute) Conduction disorder of the heart (Acute) Patient is a 73-year-old lady admitted with chest pain and assessment of the non-STEMI was made patient underwent left heart catheterization with PCI/KEISHA to an RCA lesion. Patient was also found to have ascending aortic aneurysm. 1. Acute non-STEMI: Patient was managed per protocol with low molecular weight heparin, dual antiplatelet therapy beta-blockers statin therapy cardiology consulted patient underwent left heart catheterization on 11/12/2018 was found to have an RCA lesion for which she underwent PCI/KEISHA 2. Aortic aneurysm patient scheduled to undergo CTA of the chest for subsequent evaluation. 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 These were discussed with patient by Dr. Carlson with recommendations for patient to be transferred to a tertiary care center. Patient and family to make a decision regarding their preference 3. Hypokalemia present on admission corrected per protocol 4. Dyslipidemia: Patient is on statin therapy did continue 5. Conduction system the patient was found to have intermittent second-degree AV block Mobitz 1 this was felt to be secondary to patient's underlying lesion patient has been monitored continuously on telemetry 6. COPD currently not in exacerbation did continue patient's Advair 7. Tobacco dependence counseled on cessation, offered nicotine patch for tobacco cravings 8. Left adrenal mass patient undergo subsequent evaluation with an MRI as outpatient 9. Cholelithiasis CT demonstrated multiple gallstones patient currently asymptomatic Active Medications Acetaminophen (Tylenol) 650 mg PO Q6H PRN PRN PRN Reason: Mild Pain (0-2/10) Last Admin: 11/14/18 07:08 Dose: 650 mg Albuterol/Ipratropium (Duoneb) 3 ml INHALATION Q6HWA.RT [facility] Last Admin: 11/14/18 03:28 Dose: 3 ml Aspirin (Ecotrin) 81 mg PO DAILY@0800 [facility] Last Admin: 11/13/18 09:46 Dose: 81 mg Atorvastatin Calcium (Lipitor) 80 mg PO QHS [facility] Last Admin: 11/13/18 21:09 Dose: 80 mg Atropine Sulfate () 0.5 mg IV UD PRN PRN Reason: HR <50 bpm Bisacodyl (Dulcolax) 5 mg PO DAILY PRN PRN PRN Reason: Constipation Budesonide (Pulmicort Aerosol) 0.5 mg INHALATION Q12H.RT [facility] Last Admin: 11/13/18 18:43 Dose: 0.5 mg Cyclobenzaprine HCl (Flexeril) 5 mg PO TID PRN PRN PRN Reason: SPASMS Last Admin: 11/13/18 08:50 Dose: 5 mg Ergocalciferol (Vitamin D) 50,000 unit PO QMONTH [facility] Heparin Sodium (Beef Lung) (Heparin 500 Unit/5 Ml (100/Ml)) 500 unit IV UD PRN PRN Reason: HEPARIN FLUSH Sodium Chloride () 250 mls @ 15 mls/hr IV .[id number] PRN PRN Reason: SALINE FLUSH Sodium Chloride () 1,000 mls @ 0 mls/hr IV .Q0M [facility] Sodium Chloride () 1,000 mls @ 75 mls/hr IV .[id number] [facility] Last Admin: 11/14/18 02:04 Dose: 75 mls/hr Labetalol HCl (Trandate) 5 mg IV X1 PRN PRN Reason: SBP > 160 when pulling sheath Lorazepam (Ativan) 1 mg PO Q6H PRN PRN PRN Reason: BACK SPASMS/ANXIETY Losartan Potassium (Cozaar) 100 mg PO DAILY [facility] Last Admin: 11/13/18 09:46 Dose: 100 mg Magnesium Hydroxide (Milk Of Magnesia) 30 ml PO DAILY PRN PRN Reason: Constipation Morphine Sulfate () 2 mg IV Q4H PRN PRN PRN Reason: Mild back pain (0-2/10) Last Admin: 11/13/18 08:50 Dose: 2 mg Nicotine (Nicoderm Cq (Pbkc)) 21 mg TRANSDERM. DAILY [facility] Last Admin: 11/13/18 09:47 Dose: 21 mg Nicotine Polacrilex (Rugby Nicotine (Bkc)) 2 mg PO Q2H PRN PRN PRN Reason: Nicotine Craving Nitroglycerin (Nitrostat) 0.4 mg SUBLINGUAL Q5M PRN PRN Reason: CARDIAC/CHEST PAIN Nutritional Formula (Lactose Free) (Ensure Enlive) 120 ml PO 4X/DAY [facility] Last Admin: 11/13/18 21:08 Dose: Not Given Oxycodone HCl (Oxyir) 5 mg PO Q4H PRN PRN PRN Reason: SEVERE PAIN (6-10/10) Last Admin: 11/13/18 21:09 Dose: 5 mg Psyllium Hydrophilic Mucilloid (Metamucil) 1 packet PO DAILY PRN PRN PRN Reason: CONSTIPATION Sodium Chloride () 5 - 15 ml IV UD PRN PRN Reason: SALINE FLUSH Last Admin: 11/12/18 06:14 Dose: 10 ml Sodium Chloride () 500 ml IV BOLUS PRN PRN Reason: VASO-VAGAL PROTOCOL Ticagrelor (Brilinta) 90 mg PO BID [facility] Last Admin: 11/13/18 21:09 Dose: 90 mg Clinical Impression(s) from Imaging Studies Chest X-Ray 11/11/18 22:08 IMPRESSION: Stable examination demonstrating mild cardiomegaly. Electronically Signed: Corie Huizar MD at 22:20 EST Tel , Service support , Abdomen/Pelvis CT 11/13/18 05:55 IMPRESSION: Findings suggestive of mild bibasilar scarring and small bilateral effusions. Multiple gallstones. Left adrenal mass. Left ovarian cyst. Enlarged fibroid uterus. Electronically Signed: Nelson Coello MD at 14:43 EST , Service support , Chest CT 11/13/18 05:55 IMPRESSION: Findings suggestive of mild bibasilar scarring and small bilateral effusions. Multiple gallstones. Left adrenal mass. Left ovarian cyst. Enlarged fibroid uterus. Electronically Signed: Nelson Coello MD at 14:43 EST , Service support , Code Visit Inpatient E&M: 09584 Subs Hosp L3
--- NOTE | 2018-11-14 09:00 | CASEMGMT ---
TEREZA MA [facility] Per [facility] website: [facility], [facility], [facility], In [place]: [facility].
[2018-11-14] MEDS: Budesonide Respules 0.5 MG/2 ML AMPUL.NEB. INHALATION (09:22)
[2018-11-14] MEDS: Aspirin E.C. 81 MG Tablet PO (09:22)
[2018-11-14] MEDS: Losartan Potassium 100 MG Tablet PO (09:23)
[2018-11-14] MEDS: TICAGRELOR 90 MG TABLET PO (09:23)
--- NOTE | 2018-11-14 10:00 | EKG12_ITS ---
Test Reason : CP ADMISSION Blood Pressure : / mmHG Vent. Rate : 076 BPM Atrial Rate : 076 BPM P-R Int : 228 ms QRS Dur : 112 ms QT Int : 436 ms P-R-T Axes : 054 028 051 degrees QTc Int : 490 ms Sinus rhythm with marked sinus arrhythmia with 1st degree A-V block with Premature atrial complexes Low voltage QRS Incomplete right bundle branch block Confirmed by GERALD JESUS, SENAIT ([id number]), international editorial producer LETTY RIOJAS ([id number]) on 11/18/2018 9:05:35 AM Referred By: No Mancini Confirmed By:SENAIT DUARTE MD
--- NOTE | 2018-11-14 10:49 | PCM.PN.CARD ---
Subjectve: The patient is awake and alert. She states her main concern remains her back discomfort and her cough. She also continues to have intermittent episodes of feeling dizzy. She has had no acute anterior chest discomfort or worsening shortness of breath/dyspnea. There has been no near syncope or syncope. Objective: Vital Signs Temp Pulse Resp BP Pulse Ox 97.9 F 65 20 H 116/51 L 96 11/14/18 08:26 11/14/18 08:26 11/14/18 08:26 11/14/18 08:26 11/14/18 08:26 Oxygen Flow Rate (L/min) 1 Oxygen Delivery Method Nasal Cannula Weight: 202 lb 6.15 oz Body Mass Index (BMI) 36.6 Intake and Output for Last 24 Hours 11/12/18 11/13/18 11/14/18 23:59 23:59 23:59 Intake Total 1480 / 1480 3214 / 3214 488 / 488 Output Total 1275 / 1275 900 / 900 150 / 150 Balance 205 / 205 2314 / 2314 338 / 338 General: Awake, Alert, Oriented x 3, Cooperative, No Acute Distress, Obese HEENT: Atraumatic, Normocephalic, PERRL, EOMI, Sclera Non Icteric Oral: Moist Mucosa Neck: Supple, Good ROM, No JVD Lungs: Clear to auscultation Cardiovascular: Irregular Rhythm, Normal S1, Normal S2 Vascular: No Carotid Bruits Abdomen: Bowel Sounds Present, Soft, Non Tender Extremities: No edema Skin: - - Right inguinal area ecchymoses. Neurological: No Focal Motor or Sensory Deficit Psych/Mental Status: Appropriate 11/14/18 04:50: Sodium 139, Potassium 3.6, Chloride 100, Carbon Dioxide 30.0, Anion Gap 9, BUN 22 H, Creatinine 0.54 L, Est GFR (MDRD) Af Amer 141, Est GFR (MDRD) Non-Af 117, BUN/Creatinine Ratio 40.4 H, Glucose 131 H, Calcium 8.4 L Rhythm:Sinus rhythm; 2nd degree AV block Mobitz 1; episodes of 2-1 AV block/high grade AV block Medical Necessity - Tobacco Use Smoking Status: Current every day smoker Tobacco Use: Cigarettes Assessment/Plan 1. NSTEMI The patient presents with signs and symptoms and objective findings compatible with a non-ST segment elevation RI. She underwent, based on this, further evaluation with diagnostic cardiac catheterization. She did receive RCA PCI. She will need continued medical management and follow up. 2. Conduction disorder He has been found to have an underlying conduction system disorder with evidence of a second-degree AV block Mobitz 1 and evidence of a 2-1 high-grade AV block. This may be secondary to underlying CAD. Her beta blockers have remained on hold. If or conduction system disorder does not improve then she may need to consider permanent pacemaker support. 3. Thoracic aortic aneurysm: Ascending As previously noted she has undergone evaluation with both chest and abdominal CT scan. Her results were discussed with radiology. She does have approximately a 5.6 cm ascending aortic aneurysm. Has additional disease in her thoracic aorta as noted in her radiology report. There was no report of dissection. She does need to be evaluated by CT surgery. She will need to be considered for surgical based intervention of this disorder. 4. Pericardial effusion She does have what appears to be a small pericardial effusion on her transthoracic echocardiogram and her chest CT scan. There was no evidence of cardiac tamponade physiology. This does not appear to be related to her thoracic aortic aneurysm based on the lack of evidence of dissection into the pericardial space. This will need to be followed. Upon her clinical course she may or may not need consideration for pericardiocentesis or pericardial window. 5. Hyperlipidemia The will need to continue risk factor evaluation and care. 6. HTN Her blood pressure will need to be followed. Her medications will need to be adjusted deemed appropriate. 7. COPD The does have a history of underlying COPD. This may be can contributing to her chronic shortness of breath and dyspnea. She will need to continue evaluation care per internal medicine. 8. Right inguinal area ecchymoses She does have an area of ecchymosis in the right inguinal area. Her femoral artery was studied with an arterial duplex study. She had no evidence of fistula or pseudoaneurysm. A significant amount of time has been spent discussing her case with her and her family members as well as the hospital staff. Based upon her complex cardiovascular condition above and beyond her non-ST segment elevation RI with respect of her conduction system abnormality, her pericardial fusion, her thoracic aortic aneurysm, etc. it was felt the patient should be referred to a tertiary care center for further cardiovascular input/CT surgery input with respect of the need for additional invasive evaluation and care. The patient's family states that they do have family members in [place], [place]. Her healthcare insurance allows her to go to [facility] at [facility]. Thus, an attempt will be made to make transfer arrangements for her to that institution. Dr. Jama's assistance with this issue has been most appreciated. This note was generated using a voice recognition system and there may be incorrect words, spelling or punctuation that were not noted when reviewing the office note prior to saving.
--- NOTE | 2018-11-14 11:58 | DS.PCM_ITS ---
Discharge Date and Diagnosis - Problem List Patient Problems: Active and Suspected Problems (Last Updated 11/14/18 @ 10:51 by Kelsey Ken) NSTEMI (non-ST elevated myocardial infarction) (Acute) Hyperlipidemia (Acute) Conduction disorder of the heart (Acute) Date of Admission: 11/11/18 Date of Discharge: 11/14/18 - Primary Discharge Diagnosis Active and Suspected Problems (Last Updated 11/14/18 @ 10:51 by Kelsey Briseno t) NSTEMI (non-ST elevated myocardial infarction) (Acute) Hyperlipidemia (Acute) Conduction disorder of the heart (Acute) - Secondary Discharge Diagnosis Chronic Problems (Last Updated 11/14/18 @ 10:51 by Kelsey Ken) Atherosclerotic heart disease of [place] coronary artery without angina pectoris (Chronic) S/P coronary artery stent placement (Chronic ~11/12/18) PCI/KEISHA of the mid RCA 11/12/18 Hypertension (Chronic) Vitamin D deficiency (Chronic) COPD (chronic obstructive pulmonary disease) (Chronic) Hospital Course and Treatment Imaging Results: Clinical Impression(s) from Imaging Studies Chest X-Ray 11/11/18 22:08 IMPRESSION: Stable examination demonstrating mild cardiomegaly. Electronically Signed: Corie Huizar MD at 22:20 EST Tel , Service support , Abdomen/Pelvis CT 11/13/18 05:55 IMPRESSION: Findings suggestive of mild bibasilar scarring and small bilateral effusions. Multiple gallstones. Left adrenal mass. Left ovarian cyst. Enlarged fibroid uterus. Electronically Signed: Nelson Coello MD at 14:43 EST , Service support , ADDENDUM: 11/14/[address] 11/13/18 05:55 IMPRESSION: Findings suggestive of mild bibasilar scarring and small bilateral effusions. Multiple gallstones. Left adrenal mass. Left ovarian cyst. Enlarged fibroid uterus. Electronically Signed: Nelson Coello MD at 14:43 EST , Service support , ADDENDUM: 11/14/18 0927 Summary of Care Provided: Patient is a 73-year-old lady admitted with chest pain and assessment of the non-STEMI was made patient underwent left heart catheterization with PCI/KEISHA to an RCA lesion. Patient was also found to have descending aortic aneurysm. 1. Acute non-STEMI: Patient was managed per protocol with low molecular weight heparin, dual antiplatelet therapy beta-blockers statin therapy cardiology consulted patient underwent left heart catheterization on 11/12/2018 was found to have an RCA lesion for which she underwent PCI/KEISHA 2. Aortic aneurysm patient scheduled to undergo CTA of the chest for subsequent evaluation. 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 The above findings were discussed with patient by Dr. Carlson with recommendations for patient to be transferred to a tertiary care center. Patient and family quested to be transferred to [facility] in [facility] call was placed patient was accepted for transfer 3. Hypokalemia present on admission corrected per protocol 4. Dyslipidemia: Patient is on statin therapy did continue 5. Conduction system the patient was found to have intermittent second-degree AV block Mobitz 1 this was felt to be secondary to patient's underlying lesion patient was monitored continuously on telemetry 6. COPD currently not in exacerbation did continue patient's Advair 7. Tobacco dependence counseled on cessation, offered nicotine patch for tobacco cravings 8. Left adrenal mass patient undergo subsequent evaluation with an MRI as outpatient 9. Cholelithiasis CT demonstrated multiple gallstones patient currently asymptomatic; patient was seen in consultation by Dr. Wallace his notes and recommendations reviewed Patient Problems: Active and Suspected Problems (Last Updated 11/14/18 @ 10:51 by Kelsey Ken) NSTEMI (non-ST elevated myocardial infarction) (Acute) Hyperlipidemia (Acute) Conduction disorder of the heart (Acute) - Physical Exam General: Oriented x3 HEENT: Atraumatic Lungs: Diminished Cardiovascular: Regular rate, Regular Rhythm Vital Signs Temp Pulse Resp BP Pulse Ox 97.9 F 61 20 H 116/51 L 96 11/14/18 08:26 11/14/18 11:03 11/14/18 08:26 11/14/18 08:26 11/14/18 08:26 Oxygen Flow Rate (L/min) 1 Oxygen Delivery Method Nasal Cannula Weight: 91.8 kg Body Mass Index (BMI) 36.6 Intake and Output for Last 24 Hours 11/12/18 11/13/18 11/14/18 23:59 23:59 23:59 Intake Total 1480 / 1480 3214 / 3214 488 / 488 Output Total 1275 / 1275 900 / 900 150 / 150 Balance 205 / 205 2314 / 2314 338 / 338 Laboratory Tests Past 24 Hrs 11/14/18 04:50 Sodium 139 Potassium 3.6 Chloride 100 Carbon Dioxide 30.0 Anion Gap 9 BUN 22 H Creatinine 0.54 L Estim Creat Clear Calc 40.22 Est GFR (MDRD) Af Amer 141 Est GFR (MDRD) Non-Af 117 BUN/Creatinine Ratio 40.4 H Glucose 131 H Calcium 8.4 L Discharge Diet: Low fat/ Low Cholesterol Discharge Activity: May not drive while taking narcotic pain medications. Home Medications: Medications to take at Discharge Atenolol/Chlorthalidone [Atenolol-Chlorthalidone 50-25] 1 each PO DAILY 12/14/15 Budesonide/Formoterol 160/4.5 [Symbicort 160/4.5 Mcg Inhaler (SP)] 2 puff INH ALATION QHS 12/14/15 Ergocalciferol [Vitamin D] 50,000 unit PO QMONTH 12/14/15 Tiotropium [place] [Spiriva 18 MCG] 1 puff INHALATION DAILY 12/14/15 Losartan Potassium 100 mg PO DAILY 12/13/17 Acetaminophen [Tylenol Tablet] 650 mg PO Q6H PRN PRN tablet 11/14/18 Aspirin E.C. [Ecotrin] 81 mg PO DAILY@0800 tablet 11/14/18 Atorvastatin Calcium [Lipitor] 80 mg PO QHS tablet 11/14/18 Nicotine [Nicoderm Cq] 21 mg TRANSDERM. DAILY patch 11/14/18 Nitroglycerin [Nitrostat] 0.4 mg SUBLINGUAL Q5M PRN tablet 11/14/18 Psyllium [Metamucil] 1 packet PO DAILY PRN PRN packet 11/14/18 Ticagrelor [Brilinta] 90 mg PO BID tablet 11/14/18 Primary Care Physician: Steffen Malloy Chi, MD [Primary Care Provider] - Please follow up with your Primary Care Physician in: IN 1-2 WEEKS Please Follow Up With: João Carlson MD When: IN 1-2 WEEKS Disposition: Acute care Hospital - [facility] in [facility] Minutes spent on discharge:: 45 Patient Condition:: Stable Medical Necessity - Tobacco Use Smoking Status: Current every day smoker Tobacco Use: Cigarettes Meaningful Use Info Meaningful Use Diagnoses (Choose all that apply): AMI - AMI Aspirin given w/in 24hrs of arrival?: Yes ASA at discharge?: Yes Statins at discharge?: Yes Angel Luis/ARB at discharge?: Yes Beta Katelynn at discharge?: Yes Done w/ Acute OK measure.: Yes Code Visit Inpatient E&M: [id number] Disch Hosp
--- NOTE | 2018-11-14 11:58 | DCINST_ITS ---
- Discharge Diagnoses Current Active Problems: Current Active and Chronic Problems (Last Updated 11/14/18 @ 10:51 by Kelsey Ken) Atherosclerotic heart disease of [place] coronary artery without angina pectoris (Chronic) S/P coronary artery stent placement (Chronic ~11/12/18) PCI/KEISHA of the mid RCA 11/12/18 NSTEMI (non-ST elevated myocardial infarction) (Acute) Hypertension (Chronic) Hyperlipidemia (Acute) Vitamin D deficiency (Chronic) Conduction disorder of the heart (Acute) COPD (chronic obstructive pulmonary disease) (Chronic) You will use the following diet at home:: Cardiac Discharge Activity: May not drive while taking narcotic pain medications. Allergies/Adverse Reactions: Allergies No Known Allergies Allergy (Verified 11/11/18 21:49) Medications to take at Discharge Atenolol/Chlorthalidone [Atenolol-Chlorthalidone 50-25] 1 each PO DAILY 12/14/15 Budesonide/Formoterol 160/4.5 [Symbicort 160/4.5 Mcg Inhaler (SP)] 2 puff INHALATION QHS 12/14/15 Ergocalciferol [Vitamin D] 50,000 unit PO QMONTH 12/14/15 Tiotropium [place] [Spiriva 18 MCG] 1 puff INHALATION DAILY 12/14/15 Losartan Potassium 100 mg PO DAILY 12/13/17 Acetaminophen [Tylenol Tablet] 650 mg PO Q6H PRN PRN tablet 11/14/18 Aspirin E.C. [Ecotrin] 81 mg PO DAILY@0800 tablet 11/14/18 Atorvastatin Calcium [Lipitor] 80 mg PO QHS tablet 11/14/18 Nicotine [Nicoderm Cq] 21 mg TRANSDERM. DAILY patch 11/14/18 Nitroglycerin [Nitrostat] 0.4 mg SUBLINGUAL Q5M PRN tablet 11/14/18 Psyllium [Metamucil] 1 packet PO DAILY PRN PRN packet 11/14/18 Ticagrelor [Brilinta] 90 mg PO BID tablet 11/14/18 Primary Care Physician: Steffen Malloy Chi, MD [Primary Care Provider] - Please follow up with your Primary Care Physician in: IN 1-2 WEEKS Test Results: Test results from this visit will be discussed in further detail at your follow- up appointment, if applicable. Please Follow Up With: João Carlson MD When: IN 1-2 WEEKS Proposed Discharge Date: 11/14/18
[2018-11-14] MEDS: proMETHazine 25 MG/ML Syringe 12.5 MG IM (13:00)
--- NOTE | 2018-11-14 13:56 | CASEMGMT ---
Daughter asked to speak w/LEAH regarding financial assist at [facility] where pt is going, and completing LW/POA. SW did print some information off of [facility]'s website regarding financial assist and gave it to daughter. SW encouraged daughter to follow up w/[facility]'s financial department when pt gets there. Daughter asked about copays and out of pocket cost. SW explained that she can call pt's insurance or look in her book to find out about copays and out of pocket cost. SW explained if pt has costs here there will be information on the back of the bill for who to call for assist. SW then assisted pt in completing LW/POA forms. SW gave daughter originals and copies, placed a copy on the chart and a copy in the envelope going to [facility]. No further needs anticipated. OLAYINKA Dominique, DOOR OPERATOR
== END 2018-11-14 16:02 | disposition short-term general hospital (02) | DRG 247 ==
LOC: ED 23:37 → PCU 23:57 → ICU 11-12 09:42
PROVIDERS: Internal Medicine Cardiovascular Disease; Admitting Provider Internal Medicine; Emergency Provider Emergency Medicine; Family Provider Family Medicine Geriatric Medicine; PCP Family Medicine Geriatric Medicine; Referring Provider Internal Medicine; Visit Provider Internal Medicine
DX: I21.4 Non-ST elevation (NSTEMI) myocardial infarction (principal); I31.3 Pericardial effusion (noninflammatory); I44.1 Atrioventricular block, second degree; I71.2 Thoracic aortic aneurysm, without rupture; I10 Essential (primary) hypertension; E87.6 Hypokalemia; J44.9 Chronic obstructive pulmonary disease, unspecified; I25.10 Atherosclerotic heart disease of native coronary artery without angina pectoris; E78.5 Hyperlipidemia, unspecified; F17.210 Nicotine dependence, cigarettes, uncomplicated; E55.9 Vitamin D deficiency, unspecified; E27.8 Other specified disorders of adrenal gland; K80.20 Calculus of gallbladder without cholecystitis without obstruction
CPT/HCPCS: 36415; 71045; 71260; 74177; 80048; 80061; 83880; 84484; 85014; 85018; 85025; 85027; 85347; 85610; 85730; 92928; 93005; 93306; 93458; 93926; 94640; 97161; 97165; 97530; 97803; 99152; 99153; 99284; J7030; Q9957; Q9967; A4216; C1725; C1769; C1874; C1887; C1894; C8929; C9600; J1940; J2405

== ENCOUNTER → 2018-11-25 16:13 | Outpatient (CLI) | payer MEDICARE, SELFPAY ==
[2018-11-12 00:40] VITALS: BMI 36.6
[2018-11-12 13:14] VITALS: BMI 36.3
--- NOTE | 2018-11-25 16:40 | RAD_ITS ---
STUDY: X-RAY - SACRUM/COCCYX REASON FOR EXAM: Female, 73 years old. Pain after fall. TECHNIQUE: 3 view(s) of the sacrum and coccyx were obtained. COMPARISON: None. FINDINGS: Normal bilateral sacroiliac joints. Normal visualized sacral ala and fused sacral bodies. Normal sacrococcygeal junction with a normal angulation. Normal coccygeal segments. The presacral soft tissue structures are unremarkable. There is no demonstrated fracture. And still note of aortoiliac atherosclerotic calcific plaquing. RAD/Sacrum-Coccyx min 2 Views IMPRESSION: 1. No acute fracture of the sacrum and coccyx. 2. Aortoiliac atherosclerotic calcific plaquing. Electronically Signed: Rubén Morgan MD at 14:27 EST , Service support ,
[2018-11-25 16:45] LABS: Absolute Lymphocyte Count 1.36 X10^3/ul (0.83-4.51); Absolute Neutrophil Count 8.9 X10^3/uL (2.0-7.7); Basophil# 0.02 X10^3/uL; Basophil% 0.2 % (0-1); Eosinophils% 0.9 % (0-5); Hematocrit 29.4 % (37-47); Hemoglobin 9.3 g/dl (12.0-15.0); Lymphocyte # 1.36 X10^3/ul (4.0); Lymphocyte % 12.2 % (19-41); Mean Corp Hgb Conc 31.6 g/gl (32-36); Mean Corpuscular Hgb 31.8 pg (27.0-32.0); Mean Corpuscular Volume 100.7 fL (81-99); Mean Platelet Vol. 10.5 fl (6.2-12.0); Monocyte# 0.75 X10^3/uL; Monocyte% 6.7 % (0-10); Neutrophil # 8.86 X10^3/uL (2.7-7.7); Neutrophil % 79.4 % (47-70); POSITIVE COUNT NO; POSITIVE DIFFERENTIAL NO; POSITIVE MORPHOLOGY NO; Platelet Count 385 K/mm3 (150-450); RBC Distribution Width CV 14.8 % (11.6-14.6); RBC Distribution Width SD 51.6 fl (35.1-43.9); Red Blood Count 2.92 M/mm3 (4.2-5.4); White Blood Count 11.2 K/mm3 (4.4-11.0)
[2018-11-25 16:59] LABS: Anion Gap 9 (5-15); BUN 15 mg/dL (7-18); BUN/Creat Ratio 24.8 RATIO (10-20); Calcium,Total 9.1 mg/dL (8.5-10.1); Chloride 93 mmol/L (98-107); Creatinine, Serum 0.61 mg/dL (0.55-1.02); EST Glomerular Filtration Rate 103 mL/min (>60); Est Glom Filt Rate - Afr Amer 125 mL/min (>60); Glucose 113 mg/dL (74-106); Potassium 3.7 mmol/L (3.5-5.1); Sodium Level 136 mmol/L (136-145)
== END ==
LOC: POLAB3 16:14 → RAD 16:27
PROVIDERS: Family Provider Family Medicine Geriatric Medicine; PCP Family Medicine Geriatric Medicine; Referring Provider Family Medicine Geriatric Medicine; Visit Provider Family Medicine Geriatric Medicine
DX: S32.2XXA Fracture of coccyx, initial encounter for closed fracture (principal); R60.9 Edema, unspecified
CPT/HCPCS: 36415; 72220; 80048; 85025